=== PATIENT | male | born 1955 | race Caucasian/White ===

== ENCOUNTER 2024-04-21 09:26 | Outpatient (CLI) | payer MEDICARE, SELFPAY ==
--- NOTE | ~2024-04-21 | MR_ITS ---
EXAMINATION: MR lumbar spine wo con DATE: 04/21/2024 10:07 INDICATION: Intervertebral disc displacement with low back and left leg pain TECHNIQUE: Magnetic resonance imaging (MRI) of the lumbar spine was performed without intravenous con trast. Sequences included sagittal T2-weighted FSE, sagittal T2-weighted FS FSE, sagittal T1-weighted FSE, and axial T2-weighted FSE. COMPARISON: None FINDINGS: Approximately 3 mm retrolisthesis L4 on L5 and 4 mm retrolisthesis L5 on S1. Vertebral body heights a re normal. There is fibrovascular degenerative endplate changes posteriorly at L4-L5. Severe disc hei ght loss with degenerative endplate changes at L4-L5 and L5-S1. Mild disc height loss at T10-T11, T11 -T12 and L3-L4 with annular fissure and large disc extrusion at L3-L4 which will be further detailed below. Disc desiccation without disc height loss at L1-L2 and L2-L3. The conus medullaris terminates at L1. There is normal signal in the caudal spinal cord. There are couple 1.2 cm T2 hyperintense left renal cysts. Paravertebral soft tissues are unremarkable. The following disc levels are specifically discussed: T12-L1: The disc does not extend beyond the endplate margin. There is mild right and moderate left fa cet joint osteoarthritis. There is no neural foraminal stenosis. There is no central canal stenosis. L1-L2: Disc is minimally bulging. There is mild left and mild to moderate right facet joint osteoarth ritis. There is mild bilateral, left greater than right neural foraminal stenosis. There is no centra l canal stenosis. L2-L3: Disc is mildly bulging with superimposed annular fissure. There is mild to moderate bilateral facet joint osteoarthritis. There is moderate bilateral neural foraminal stenosis. There is mild cent ral canal stenosis. L3-L4: Disc is bulging with annular fissure and large central disc extrusion which extends cephalad i nto the right paracentral region up to 2.1 cm above level of the inferior endplate of L3. There is mo derate bilateral facet joint osteoarthritis. There is moderate left and mild to moderate right neural foraminal stenosis. There is severe central canal stenosis. L4-L5: Right paracentral predominant posterior disc osteophyte complex. There is right and mild to mo derate left facet joint osteoarthritis. There is moderate left and moderate to severe right neural fo raminal stenosis. There is mild central canal stenosis with posterior decompression via a right hemil aminectomy. There is also mild narrowing of the right lateral recess. L5-S1: Posterior disc osteophyte complex. There is mild to moderate bilateral facet joint osteoarthri tis. There is mild to moderate bilateral neural foraminal stenosis. There is mild central canal steno sis with narrowing of the lateral recesses, mild on the right and moderate on the left IMPRESSION: 1. Severe lower lumbar predominant spondylosis with severe central canal stenosis resulting from a la rge central disc extrusion at L3-L4. Reviewed, dictated and finalized at location B. IMPRESSION: 1. Severe lower lumbar predominant spondylosis with severe central canal stenos is resulting from a large central disc extrusion at L3-L4.
== END 2024-04-21 09:27 ==
LOC: MICIMG 09:33
PROVIDERS: PCP Family Medicine; Visit Provider Neurological Surgery
DX: M51.26 Other intervertebral disc displacement, lumbar region (principal); M47.896 Other spondylosis, lumbar region
CPT/HCPCS: 72148

== ENCOUNTER 2024-05-04 09:31 | Emergency (ER) | payer MEDICARE, SELFPAY ==
[2024-05-04 09:36] VITALS: BP 138/49; PULSE 68; RESP 16; TEMP 36.8; O2SAT 96
[2024-05-04] MEDS: KETOROLAC 30 MG/ML VIAL (*BKC) IM (10:21)
--- NOTE | 2024-05-04 10:48 | ED.BACK ---
HPI - Back Pain/Injury General Chief Complaint: Back Pain/Injury Stated Complaint: bulging disk is killing me Time Seen by Provider: 05/04/24 09:34 History of Present Illness HPI Narrative: Patient is a 68-year-old male who presents ER with low back pain. Ongoing for 4 days. radiates from the right lower back around to the right anterior thigh. Reports has weakness due to pain but no paralysis. No saddle anesthesia or difficulty urinating or defecating. No reports of trauma for past few days. He is seen your surgery and has had an outpatient MRI that shows a bulging disc with central canal stenosis. He has had steroid injections through pain management physician the last 1 4 weeks ago and reports that it gave him no improvement. Related Data Home Medications Medication Instructions Recorded Confirmed famotidine 20 mg tablet 20 mg PO DAILY 10/25/23 10/25/23 glimepiride 1 mg tablet 1 mg PO QAM 10/25/23 10/25/23 hydrocodone 5 mg-acetaminophen 325 1 tablet PO QHS PRN 10/25/23 10/25/23 mg tablet pregabalin 100 mg capsule 100 mg PO BID 10/25/23 10/25/23 metformin 500 mg tablet 500 mg PO DAILY 04/09/24 Allergies Allergy/AdvReac Type Severity Reaction Status Date / Time codeine AdvReac Chest Pain Verified 05/04/24 09:41 [facility] Past Medical History Medical History (Updated 05/04/24 @ 12:25 by Dileep Mcneil MD) Lumbar spondylosis Family History Family History Mother Diabetes mellitus Social History Social History Smoking packs per day: 1 Smoking cigarettes per day: 20.0 Smoking status: Current every day smoker Alcohol intake: never Substance use: never Substance use type: does not use Do You Feel Safe in your Home?: Yes Lack of Transportation: No Lack of Food: Never True Current Housing: I Have Housing Concerned About Future Housing: No Difficulty Paying Gas/Electric Bills: No Difficulty Paying for Meds: No Currently Unemployed: No Education: Associate Degree Difficulty w/ Childcare or Family Care: No Exam Narrative: GENERAL: Well-appearing, well-nourished, and in no acute distress. HEAD: Normocephalic, atraumatic. ENT: Mucous membranes moist. CHEST: Clear to auscultation. No respiratory distress. HEART: Regular rate and rhythm. Normal peripheral pulses. EXTREMITIES: Normal range of motion. No edema. 5/5 strength in the right and left lower extremities at the hip/knee/ ankle. No decreased sensation. SKIN: Warm, dry, no rash. NEURO: Alert and oriented x3. PSYCH: Normal mood and affect. Course Course Emergency Course: Discussed with Neurosurgery on-call. Recommend start Dosepak and follow-up on . I will also give patient a Percocet since [employer] is no longer working for him. Vital Signs Vital signs: Vital Signs Temperature 98.3 F 05/04/24 09:36 Pulse Rate 68 05/04/24 09:36 Respiratory Rate 16 05/04/24 09:36 Blood Pressure 138/49 L 05/04/24 09:36 Pulse Oximetry 96 05/04/24 09:36 Oxygen Delivery Room Air 05/04/24 09:36 Temperature 98.3 F 05/04/24 09:36 Pulse Rate 68 05/04/24 09:36 Respiratory Rate 16 05/04/24 09:36 Blood Pressure 138/49 L 05/04/24 09:36 Pulse Oximetry 96 05/04/24 09:36 Oxygen Delivery Room Air 05/04/24 09:36 Discharge Plan Discharge Clinical Impression: Herniated disc Patient Disposition: Home, Self-Care Condition: Stable Instructions: Acute Low Back Pain (ED) Additional Instructions: Please return to the emergency department if you develop severe pain that is not controlled by pain medications or if you are unable to walk because of pain or weakness. Return to the emergency department immediately if you develop fevers, loss of bowel or bladder control (dribbling of urine or having accidents you wouldn't normally have), inability to urinate, n
== END 2024-05-04 12:58 | disposition home or self-care (01) ==
PROVIDERS: Emergency Provider Emergency Medicine; PCP Family Medicine
DX: M54.50 Low back pain, unspecified (principal); M51.26 Other intervertebral disc displacement, lumbar region; F17.210 Nicotine dependence, cigarettes, uncomplicated
CPT/HCPCS: 96372; 99283; J1885

== ENCOUNTER 2024-05-25 13:41 | Outpatient (CLI) | payer MEDICARE, SELFPAY ==
[2024-05-25 14:46] LABS: Appearance Urine Clear (Clear); Bacteria Urine None Seen /hpf; Bilirubin Urine Negative (Negative); Blood Urine 1+ (Negative); Color Urine Yellow (Yellow); Glucose Urine UA 3+ mg/dL (Negative); Ketones Urine Negative (Negative); Leukocyte Esterase Ur Negative LEU/UL (Negative); Nitrate Urine Negative (Negative); Non Pathogenic Casts 0-2; Protein Urine Negative (Negative); Squamous Epithelial Cell Urine None Seen /hpf (Few); Urobilinogen Urine 0.2 mg/dL (<2.0); WBC Urine 0-5 /hpf (0-3); pH Urine 5.5 (5.0-9.0)
[2024-05-25 14:53] LABS: INR 0.9; Prothrombin Time 12.9 Seconds (11.1-14.7)
[2024-05-25 14:54] LABS: Partial Thromboplastin Time 37.5 Seconds (22.3-36.8)
[2024-05-25 14:57] LABS: Add Urine Microscopic? YES
== END 2024-05-25 13:42 | disposition home or self-care (01) ==
LOC: ANHSURGERY 13:49
PROVIDERS: PCP Family Medicine; Visit Provider Neurological Surgery
DX: M51.16 Intervertebral disc disorders with radiculopathy, lumbar region (principal); Z01.818 Encounter for other preprocedural examination
CPT/HCPCS: 36415; 81001; 85610; 85730

== ENCOUNTER 2024-05-27 00:48 | Day surgery (SDC) | payer MEDICARE, SELFPAY ==
--- NOTE | 2024-05-25 11:54 | PC.NURSE ---
Report to the Outpatient Waiting Room, entrance under the green pavilion located off [facility], at time _10:30 AM on date _05/27/24 . Planned Procedure Time: _12:30 PM . Time changes happen often and if your time is changed the preop area will call you the afternoon before. - You and your visitor will be asked to self-screen and do not enter if you have any COVID symptoms. - A mask is optional within the hospital at this time. Patients may have clear liquids (water, carbonated beverages, clear teas, apple juice) until 3 hours prior to surgery( 9:30AM) with a maximum of 20 ounces. - No food from midnight until time of surgery - Infants may have breast milk until 4 hours before surgery, infant formula 6 hours prior to surgery. - Children will be allowed to drink immediately following surgery. If applicable, please bring a bottle or sippy cup to assist with drinking. Juice, water, soda, and popsicles are readily available. For infants on formula, please bring formula the day of surgery. Pacifiers are allowed. Take the following medications with a SIP of water the morning of surgery: ____PREGABALIN,INHALER IF NEEDED,HYDROCODONE IF NEEDED DO NOT STOP ANY OF YOUR OTHER PRESCRIPTION MEDICATIONS PRIOR TO SURGERY ?EXCEPT THE FOLLOWING Medications to discontinue per physician __PT STATES HOLD ASPIRIN 7 DAYS PRE OP PER DR YU. LAST DOSE ONE MONTH AGO Please no make-up, nail rwandan, hairspray, perfume, deodorant, or body powder the day of surgery. No jewelry (including any body piercings) or valuables the day of surgery, leave them at home. Please take a shower or bath the night before, or the morning of, surgery with an antibacterial soap. Wear comfortable, loose fitting clothing. Children are encouraged to wear pajamas. - Jewelry must be removed prior to entering the operating room. Rings and piercings that are not removed may be cut off. - The hospital will not accept responsibility for valuables. - Please leave all valuables, including medications, at home the day of surgery. If you are going home after surgery, a licensed assembly line driver must drive you home. - NO public transportation without another adult if you receive anesthesia. - We recommend that an adult stay with you for 24 hours following discharge. - We also recommend that you do not drive, make important decision, drink alcoholic beverages, or take any drugs that were not prescribed by your health care provider for at least 24 hours after your discharge time. For Pediatric surgeries, we recommend two adults accompany the child home. Follow any additional instructions given to you from your surgeon. If you or anyone in your household have experienced Covid symptoms in the past week, please notify your surgeon or the nurse liaison at the phone number below for possible testing. Telephone instructions given to __PATIENT and asked if any additional questions and then verbalized understanding. Patient advised to call surgeon office or pre surgery nurse liaison [phone] if any additional questions.
[2024-05-25 12:01] VITALS: BMI 22.4
[2024-05-27] VITALS (9 sets, daily range): BP systolic 120–148; BP diastolic 56–80; PULSE 70–96; RESP 12–20; TEMP 36.2–36.7; O2SAT 92–100
--- NOTE | ~2024-05-27 | XR_ITS ---
EXAMINATION: XR fluoroscopy no charge DATE: 05/27/2024 16:23 INDICATION: Right L3-L4 microdiscectomy TECHNIQUE: Single lateral fluoroscopic image of the lower lumbar spine was obtained during procedure performed by Dr. Lockwood. Radiologist was not present for the imaging or procedure. The amount of flu oroscopy time used during this procedure was 0.1 minutes. COMPARISON: None. FINDINGS: Lap sponge projects over the soft tissues posterior to the L3 spinous process. The tip of a metallic probe projects posterior to the lamina at L3-L4. Moderate to severe disc height loss at L4- L5 and L5-S1.. IMPRESSION: 1. Fluoroscopy utilized during neurosurgical procedure at the lower lumbar spine. See procedure note for further detail. Reviewed, dictated and finalized at location A. IMPRESSION: 1. Fluoroscopy utilized during neurosurgical procedure at the lower lumbar spin e. See procedure note for further detail.
[2024-05-27] MEDS: LACTATED RINGERS 1,000 ML 30 ML IV CONT ×2 (11:06→15:10)
[2024-05-27 11:11] LABS: Glucose Point of Care 159 mg/dl (65-105)
[2024-05-27 11:31] LABS: Partial Thromboplastin Time 40.4 Seconds (22.3-36.8)
--- NOTE | 2024-05-27 12:00 | WPDANESEPPF ---
Anes - Initial Pre Proc Eval Procedure: Operation Date: 05/27/24 12:30 Proposed Procedures p Right L3-4 Microdiscectomy - Rosa Lockwood MD Date/Time: 05/27/24 12:00 Surgeon: Rosa Lockwood MD Pre Op Diagnosis: lumbar disc herniation with radiculopathy Patient Data Age: 68 Gender: M Height: 1.83 m Weight: 73.8 kg Last Vital Signs Temp 36.7 C 05/27/24 10:37 Pulse 72 05/27/24 10:37 Resp 18 05/27/24 10:37 BP 148/56 H 05/27/24 10:37 Pulse Ox 99 05/27/24 10:37 O2 Del Method Room Air 05/27/24 10:37 Allergies Allergy/AdvReac Type Severity Reaction Status Date / Time codeine AdvReac Chest Pain Verified 05/27/24 11:12 Home Medications Medication Instructions Recorded Confirmed Type famotidine 20 mg tablet 20 mg PO BID 10/25/23 05/27/24 History glimepiride 1 mg tablet 1 mg PO QAM 10/25/23 05/27/24 History hydrocodone 5 mg-acetaminophen 325 1 tablet PO QHS PRN Pain 10/25/23 05/27/24 History mg tablet pregabalin 100 mg capsule 100 mg PO BID 10/25/23 05/27/24 History metformin 500 mg tablet 500 mg PO DAILY 04/09/24 05/27/24 History tramadol 50 mg tablet 50 mg PO Q6H PRN pain #28 tabs 05/07/24 05/27/24 Rx albuterol sulfate 90 mcg/actuation 1 puff inhalation PRN PRN 05/25/24 05/27/24 History aerosol inhaler (Ventolin HFA) Shortness Of Breath aspirin 81 mg tablet,delayed 81 mg PO DAILY 05/25/24 05/27/24 History release (Adult Low Dose Aspirin) testosterone 20.25 mg transdermal DAILY 05/25/24 05/27/24 History Laboratory Tests 05/27/24 05/27/24 11:01 11:04 APTT 40.4 H Seconds (22.3-36.8) POC Capillary Glucose 159 H mg/dl (65-105) Patient hx anesthesia problems: none Family hx anesthesia problems: none Results Review: All pre-operative results and documents have been reviewed as part of the pre-operative evaluation. [facility] Past Medical History Medical History (Updated 05/27/24 @ 12:01 by Corky Mclain MD) COPD (chronic obstructive pulmonary disease) Diabetes Lumbar spondylosis PVD (peripheral vascular disease) Family History Family History Mother Diabetes mellitus Social History Social History Smoking packs per day: 1 Smoking cigarettes per day: 20.0 Years smoked: 48 Smoking pack-years: 48.00 Smoking status: Current every day smoker Tobacco type: cigarettes Alcohol intake: never Substance use: never Substance use type: does not use Do You Feel Safe in your Home?: Yes Lack of Transportation: No Lack of Food: Never True Current Housing: I Have Housing Concerned About Future Housing: No Difficulty Paying Gas/Electric Bills: No Difficulty Paying for Meds: No Currently Unemployed: No Education: Associate Degree Difficulty w/ Childcare or Family Care: No Living arrangements: alone Spiritual care concerns: No Anes - Eval Final PreProcedure Day of Procedure 05/27/24 12:00 Patient weight: normal Heart: regular rate and rhythm Lungs: decreased breath sounds Airway: Mallampati scale class II Neurological: alert and oriented Last oral intake: >/= 8 hours ASA classification: IV Emergent: no Anesthetic plan: proceed Anesthesia type and monitoring: general ETT and standard monitoring Results Review: All pre-operative results and documents have been reviewed as part of the pre-operative evaluation. Informed Consent: The patient's anesthetic plan and its attendant risks and benefits were discussed with the patient/family/POA. Questions were solicited and answers provided to the satisfaction of the patient/family/POA.
--- NOTE | 2024-05-27 12:53 | WPDHPUPDATE1 ---
History and Physical Update Update Date/Time: 05/27/24 12:53 History and Physical has been reviewed, including an updated exam of the patient. There are NO changes in the patient's condition. Risks, benefits, and alternatives have been discussed and questions answered. Patient agrees to proceed with procedure.
[2024-05-27] MEDS: ceFAZolin 2 GM/D5W 50 ML 2 GM/50 ML BAG IVPB (13:45)
[2024-05-27] MEDS: BUPIVACAINE/EPINEPHRINE 0.5% 50 ML VIAL 30 ML INFILTRATE (13:53)
--- NOTE | 2024-05-27 14:59 | PM.OP ---
Procedure Note - Brief Procedure Note - Brief Date of procedure: 05/27/24 lumbar disc herniation with radiculopathy Post-op diagnosis: Same Procedure performed: Right L3-4 microdiskectomy Use of microscope Use of C-arm Surgeon: Rosa Lockwood MD Anesthesia: GETA Findings: Three large free pieces of disc identified and removed from spinal canal without complication Estimated blood loss (mL): 50 Drains: No Packing: No Pathology: None sent Complications: None Condition: Stable Disposition: PACU
--- NOTE | 2024-05-27 15:21 | W.PM.PROC2 ---
Procedure Note - Detailed Date of Procedure 05/27/24 Pre-op Diagnosis lumbar disc herniation with radiculopathy Post-op Diagnosis Same Procedure Performed 1. Right L3-4 microdiskectomy 2. Use of C-arm for fluroscopy 3. Use of microscope for microsurgical dissection Surgeon Rosa Lockwood MD Insulation Board Calender Operator Rashel Anesthesia General Indications Mr. Lopez is a 68-year-old male with history of diabetes and peripheral vascular disease who has had significant back and right leg pain as well as more recent development of numbness and requiring a walker to ambulate who has a recent MRI lumbar spine showing a new large central disc herniation at L3-4 which is cranially migrated. This is causing severe central stenosis at L3-4. We discussed treatment options including an epidural steroid injection at L3-4 versus proceeding with surgery in the form of a right L3-4 microdiskectomy. We discussed surgery in detail including risks, expected recovery, and restrictions after surgery. He would like to proceed with surgery as discussed. Description of Procedure The patient was brought to the operating room, and general anesthesia was induced. The patient was placed prone on the Dhiraj frame, and all pressure points were padded. Compression devices were placed on the patient's calves. The skin was cleaned with alcohol. The C-arm was brought onto the field to localize the appropriate disc space and assist with incisional planning. The area was prepped and draped in usual sterile fashion. A time out was conducted, and pre-operative antibiotics were administered. Local anesthesia was injected into the planned incision. A skin incision was made with a 10-blade scalpel, and dissection was carried down with the monopolar cautery to open the fascia. The right lamina at L3 was exposed with the bovie. An upgoing curette was placed under the L3 lamina, and the C-arm was brought in to confirm the correct level. A self-retaining retractor was placed. The currette was used to clear the space under the lamina. A laminotomy was made using the Kerrison rongeurs and high-speed drill. The ligamentum flavum was opened with a currette and removed with Kerrisons. The dura was noted to be bulging due to the disc. The dura was from the disc and retracted. A nerve hook was used to remove the herniated fragment in three large fragments. A Woodsen was used to ensure the dura were well decompressed. Hemostasis was achieved with Surgiflo and cottonoid patties. The area was copiously irrigated. No evidence of CSF leak was noted. The fascia was closed with 0-Vicryl in an interrupted fashion. The soft tissue was again copiously irrigated. The dermis was closed with 2-0 and 3-0 interrupted Vicryl. The skin was closed with subcuticular 4-0 monocryl. This was covered with skin glue. The patient was returned supine on the stretcher, extubated, and transferred to PACU without incident. Codes: 88958, 32070 Estimated Blood Loss 50 Drains No Packing No Pathology None sent Complications None Condition Stable Disposition PACU [facility] Billing Surgery - Charge Forward: Surgery Billing
[2024-05-27 15:45] LABS: Glucose Point of Care 159 mg/dl (65-105)
== END 2024-05-27 16:55 | disposition home or self-care (01) ==
PROVIDERS: PCP Family Medicine; Visit Provider Neurological Surgery
PROC: (CPT 63030; principal; 2024-05-27 12:30)
DX: M51.16 Intervertebral disc disorders with radiculopathy, lumbar region (principal); E11.51 Type 2 diabetes mellitus with diabetic peripheral angiopathy without gangrene; J44.9 Chronic obstructive pulmonary disease, unspecified; F17.210 Nicotine dependence, cigarettes, uncomplicated; Z79.84 Long term (current) use of oral hypoglycemic drugs; Z79.51 Long term (current) use of inhaled steroids; Z79.82 Long term (current) use of aspirin
CPT/HCPCS: 63030; 36415; 82948; 85730; 99199; J0690; J2250; J2405; J2704; J3010; J7120

== ENCOUNTER 2024-12-28 13:55 | Outpatient (CLI) | payer MEDICARE, SELFPAY | END 2024-12-28 13:56 | disposition home or self-care (01) | LOC: MICIMG 13:56 | PROVIDERS: PCP Family Medicine; Visit Provider Neurological Surgery | DX: R29.818 Other symptoms and signs involving the nervous system (principal); G95.89 Other specified diseases of spinal cord; M43.02 Spondylolysis, cervical region; M51.379 Other intervertebral disc degeneration, lumbosacral region without mention of lumbar back pain or lower extremity pain; M43.06 Spondylolysis, lumbar region; M25.512 Pain in left shoulder; M25.511 Pain in right shoulder; M25.551 Pain in right hip; Z98.1 Arthrodesis status; Z98.890 Other specified postprocedural states | CPT/HCPCS: 72110; 72141; 72158; 73030; 73502; A9579 ==

== ENCOUNTER 2025-01-26 08:33 | Outpatient (CLI) | payer MEDICARE, SELFPAY ==
--- NOTE | 2025-01-25 15:53 | PC.NURSE ---
Pre Radiology instructions Report to the outpatient marbin landaverde on date _01/26/25____ at time __9 AM for procedure Time: 11 AM____ YOU MAY BE MONITORED AT HOSPITAL FOR UP TO 4 HOURS AFTER YOUR PROCEDURE. A visitor will be allowed to accompany the patient into the hospital. You and your visitor will be asked to self-screen and do not enter if you have any COVID symptoms. A mask is OPTIONAL within the hospital. Patients are to have no food or drink 6 hours prior to procedure time Driving will be restricted after the procedure, you must have a person to drive you home. Labs will be drawn in preop area and once reviewed, you will be taken to radiology area for procedure. When the procedure is completed, you will be taken to outpatient where you will be monitored for several hours. You may have one visitor in this area. Other than holding anti-coagulants, patient may take other medication(s) as scheduled. Prior to your appointment date patients are instructed to hold anti-coagulants after discussing with ordering provider to stop. If unable to discontinue anti-coagulants please notify radiologist. ? No aspirin or warfarin (Coumadin) for 7 days prior to the procedure. ? No clopidogrel (Plavix), ticagrelor (Brilinta), prasugrel (Effient) or dabigatran (Pradaxa) for 5 days prior to the procedure. ? No rivaroxaban (Xarelto), apixaban (Eliquis), dipyridamole (Aggrenox or Persantine) or cilostazol (Pletal) for 2 days prior to the procedure. Medications to discontinue per physician: ____NONE____ Date to take last dose: Please leave all valuables, including medications, at home the day of procedure. The hospital will not accept responsibility for valuables. Wear comfortable, loose fitting clothing.? Follow any additional instructions given to you from ordering provider. Telephone instructions given to ___PATIENT and asked if any additional questions and then verbalized understanding. Patient advised to call scheduling provider office or registration scheduling [phone] if any additional questions.
[2025-01-25 16:00] VITALS: BMI 23.7
[2025-01-26] VITALS (8 sets, daily range): BP systolic 118–163; BP diastolic 46–72; PULSE 52–63; RESP 16–18; TEMP 36.2; O2SAT 97–99
--- NOTE | ~2025-01-26 | XR_ITS ---
EXAMINATION: CT cervical spine w con, CT thoracic lumbar w con, [id number] DATE: 01/26/2025 11:27 INDICATION: TECHNIQUE: Informed consent was obtained from the patient. Risks and benefits including bleeding, i nfection and nerve root injury were discussed with the patient. The patient agreed to proceed. Time out procedure was performed. Director Physical Therapy radiograph was obtained. An entry site was chosen at the L2/3 l evel. A left paracentral approach was used. Standard sterile prep was done with Betadine. Entry si te was infiltrated with 5 cc 1% lidocaine. A 3.5 22G spinal needle was then inserted into the spina l canal. 10 mL Omnipaque 300 were then injected into the thecal sac. Patient was placed in prone Danny ndelenburg position and movement of the contrast bolus into the cervical spine was monitored with int ermittent fluoroscopy. AP and lateral views of the cervical, thoracic and lumbar spine and left and r ight oblique fluoroscopic images of the lumbar spine were obtained. A total of 23 fluoroscopic images were recorded. Fluoroscopy time was 1.4 minutes. Total DAP was 9.478 Gycm^2. The patient was then transferred to CT scan for spiral CT of the cervical, thoracic and lumbar spine which was performed with the intrathecal contrast but without intravenous contrast. Following this p atient was transferred to recovery area for 2 hours of observation. There are no immediate complicat ions. Coronal and sagittal reformatted images of the lumbar spine CT were also reviewed. Automated ex posure control and iterative reconstruction technique were employed. The dose-length product was 1609 .42 mGy-cm. COMPARISON: Cervical and lumbar spine MRI dated 12/28/2024 FINDINGS: Cervical spine: Instrumented C3-C4 and C6-C7 anterior spinal fusion with interbody bone graft cages and anterior plat e-screw fixation. Bone alignment is normal. Unfused cervical vertebral body heights are normal. No fr acture. Mild disc height loss at C2-C3 and C4-C5 and moderate disc height loss at C5-C6. Atherosclero tic calcifications at the bilateral carotid bulbs. Cervical soft tissues are otherwise unremarkable. The following disc levels are specifically discussed: C2-C3: There is mild to moderate bilateral uncovertebral joint osteoarthritis. There is moderate righ t and severe left facet joint osteoarthritis. There is mild left and minimal right neural foraminal s tenosis. There is minimal central canal stenosis. C3-C4: Hypertrophic change along the posterior margin of the fused disc space most prominent in the l eft paracentral region where it indents the left ventral surface of the cord. There is severe bilater al uncovertebral joint osteoarthritis. There is moderate bilateral facet joint osteoarthritis. There is moderate bilateral neural foraminal stenosis. There is mild to moderate central canal stenosis bertha suring 5 to 6 mm AP in the mid sagittal plane. C4-C5: Disc is mildly bulging with some peripheral calcification. There is mild bilateral uncovertebr al joint osteoarthritis. There is mild right and severe left facet joint osteoarthritis. There is mil d right and mild to moderate left neural foraminal stenosis. There is mild central canal stenosis. C5-C6: Partially calcified disc with right paracentral disc protrusion which indents the right ventra l surface of the cord. There is severe bilateral uncovertebral joint osteoarthritis. There is mild to moderate bilateral facet joint osteoarthritis. There is moderate left and moderate to severe right n eural foraminal stenosis. There is mild central canal stenosis. C6-C7: Disc space and bilateral uncovertebral joints are fused. There is mild to moderate bilateral f acet joint osteoarthritis. There is mild left and minimal right neural foraminal stenosis. There is n o central canal stenosis. C7-T1: The disc does not extend beyond the endplate margin. There is minimal bilateral uncovertebral joint osteoarthritis. There is moderate left and severe right facet joint osteoarthritis. There is mi nimal bilateral neural foraminal stenosis. There is no central canal stenosis. Thoracic spine: 10 degrees mid thoracic dextroscoliosis. Sagittal alignment is normal. Chronic appearing mild anterio r wedging at T1, T6 and T7. No acute fracture. There is moderate disc height loss at T5-T6 and T10-T1 1 with multilevel mild disc height loss the remaining levels from T1-T2 through T11-T12. Disc is mini haroon bulging at T11-T12 with no significant central canal stenosis. Remaining thoracic discs do not extend beyond the endplate margins with no central canal stenosis. There is moderate facet osteoarthr itis contributed to mild neural from stenosis bilaterally at T3-T4 and on the right at T4-T5. Otherwi se minimal to mild facet osteoarthritis throughout the thoracic spine. Additional mild bilateral neur al from stenosis at T11-T12. No other significant neural foraminal stenosis. Mild emphysema. Calcifie d right hilar lymph nodes consistent with old granulomatous disease. Small sliding-type hiatal hernia . Lumbar spine: 12 degrees lumbar levoscoliosis. Sagittal alignment is normal. Lumbar vertebral body heights are norm al. Severe disc height loss at L4-L5 and L5-S1. Mild disc height loss at L3-L4. The conus medullaris terminates at L1. There is atherosclerotic calcification and stenting at the aortic bifurcation with stents extending to the proximal most left common iliac artery and the bifurcation of the right commo n iliac artery. The following disc levels are specifically discussed: L1-L2: The disc does not extend beyond the endplate margin. There is mild to moderate bilateral facet joint osteoarthritis. There is mild bilateral neural foraminal stenosis. There is no central canal s tenosis. L2-L3: Disc is mildly bulging. There is mild bilateral facet joint osteoarthritis. There is mild left and mild to moderate right neural foraminal stenosis. There is moderate central canal stenosis. L3-L4: Disc is bulging. There is mild bilateral facet joint osteoarthritis. There is mild to moderate right and moderate left neural foraminal stenosis. There is moderate central canal stenosis. L4-L5: Posterior disc osteophyte complex. There is mild left and moderate right facet joint osteoarth ritis. There is moderate left and moderate to severe right neural foraminal stenosis. There is mild c entral canal stenosis with prior posterior decompression including a right hemilaminotomy. L5-S1: Posterior disc osteophyte complex. There is mild to moderate bilateral facet joint osteoarthri tis. There is mild to moderate bilateral neural foraminal stenosis. There is mild central canal steno sis. IMPRESSION: 1. S-shaped lumbar scoliosis with mild thoracic dextrocurvature and lumbar levocurvature. 2. Moderate cervical, mild to moderate thoracic and severe lumbar spondylosis. Reviewed, dictated and finalized at location A. IMPRESSION: 1. S-shaped lumbar scoliosis with mild thoracic dextrocurvature and lumbar levo curvature. 2. Moderate cervical, mild to moderate thoracic and severe lumbar spondylosis. IMPRESSION: 1. S-shaped lumbar scoliosis with mild thoracic dextrocurvature and lumbar levo curvature. 2. Moderate cervical, mild to moderate thoracic and severe lumbar spondylosis.
--- OUTSIDE RECORDS SUMMARY | 2025-01-26 08:45 | XMS_ITS | Encounter Summary ---
Author Organization [facility] Address [address] [place] [address] Care Team Providers Care Rail Walker Name Role Phone Anuradha Ramos MD Primary Care Provider Anuradha Ramos MD Unavailable [phone] Alfred Lowery MD Unavailable [phone] Moises Munroe APRN Unavailable [phone] Cosmo Castillo MD Unavailable [phone] Encounter Details Date Type Department Care Team (Late st Contact Info) Description 03/02/2022 Prep for Procedure [facility], [facility] [address], [place] [id number] Mata Moy MD [facility]. [facility] [address] [place] [address] Social History Tobacco Use Types Packs/Day Years Used Date Smoking Tobacco: Every Day Cigarettes 1 40 Smokeless Tobacco: Never Comments:doc will address Alcohol Use Standard Drinks/Week Comments Not Currently 0 (1 standard drink = 0.6 oz pur e alcohol) socially PHQ-2 Answer Date Recorded PHQ-2 Score - If the patient scores above 3, please move on to questions 3-9 0 01/04/2021 Sex and Gender Information Value Date Recorded Sex Assigned at Male 11/12/2024 9:53 AM [employer]ER Legal Sex Male 9:48 PM CDT Gender Identity Not on file Sexual Orientation Not on file 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 Unable to assess 02/28/2022 11:41 AM CDT documented as of this encounter Plan of Treatment Not on file documented as of this encounter Visit Diagnoses Not on filedocumented in this encounter Care Teams Rail Walker Relationship Specialty Start Date End Date Anuradha Ramos MD [address] [place] [id number] PCP - General FAMILY PRACTICE 12/11/21 Anuradha Ramos MD [address] [place] [id number] FAMILY PRACTICE 12/11/21 Alfred Lowery MD [address] [place] [id number] CARDIOVASCULAR DISEASE 02/26/17 Moises Munroe APRN [address] [place] [id number] Nurse Practitioner NURSE PRACTITIONER 05/02/20 Cosmo Castillo MD [address] [facility] [address] [place] [address] [employer] INTERVENTIONAL CARDIOLOGY 05/24/21 documented as of this encounter
--- OUTSIDE RECORDS SUMMARY | 2025-01-26 08:45 | XMS_ITS | Encounter Summary ---
Author Organization [facility] Address [address] [place] [address] Phone Care Team Providers Care Coin Machine Operator Name Role Phone Anuradha Ramos MD Primary Care Provider Darrick Martinez MD Unavailable [phone] Reason for Referral * Consult, Test & Initiate Treatment (Routine) - Closed Specialty Diagnoses / Procedures Referred By Contclarence t Referred To Contact General Surgery Diagnoses Anterior cervical adenopathy Normochromic anemia Left-shifted white blood cells Smoking greater than 40 pack years Shalom Escobar MD [address] [place] [address] [place] [address] Phone: tel: fax: Edouard Rosas, [address] [place] [address] Phone: tel: fax: Referral ID Status Reason Start Date Expiration Date Visits Re quested Visits Authorized [id number] Closed 09/06/2021 1 1 Scheduling Instructions Vinayak needs to have an upper and lower endoscopy to r/o GI bleeding. Dx: Low iron (Vinayak will call himself to make the appt). ARCHITECT Reason for Visit * Reason Onset Date Comments lab results 09/05/2021 lab results Encounter Details Date Type Department Care Team ([facility] st Contact Info) Description 09/05/[address] [address] Shalom Escobar MD [address] [place] [address] [place] [address] lab results (lab results) Social History Tobacco Use Types Packs/Day Years Used Date Smoking Tobacco: Every Day Cigarettes Smokeless Tobacco: Never Alcohol Use Standard Drinks/Week Comments Yes 0 (1 standard drink = 0.6 oz pur e alcohol) Socially PHQ-2 Answer Date Recorded Total Score - Questions 1-9 0 01/2021 Sex and Gender Information Value Date Recorded Sex Assigned at Not on file Legal Sex Male 1:13 PM CDT Gender Identity Not on file Sexual Orientation Not on file COVID-19 Exposure Response Date Recorded In the last month, have you been in contact with someone who was confirmed or suspected to have Coronavirus / COVID-19? No / Unsure 08/31/2021 2:55 PM CDT documented as of this encounter Miscellaneous Notes * Telephone Encounter - Shanika Nuñez - 09/06/2021 9:43 AM CST Pt scheduled & notified. Will make referral to Dr. Rosas ARCHITECT * Telephone Encounter - Adia Priest LPN - 09/06/2021 9:06 AM CST I called Vinayak with Dr Escobar's recommendations. He will start a slo release iron tablet daily as recommended. He admits he had scopes with Dr Rosas a few years ago. He is wanting to vacation over thenext few months and wishes to make his own appt with Dr Rosas. I entered the referral order. Scheduling: Can we please send records to Dr Rosas and just let his office know the pt will be making his own appt? I entered the lab orders for 2-3 months from now and faxed them to [facility]. Scheduling: Please make Vinayak marina f/u appt per Dr Escobar's recommendations. ARCHITECT * Telephone Encounter - Shalom Escobar MD - 09/05/2021 9:43 PM CST Ideally -- he needs to have an Upper and lower GI endoscopy done to r/o GI bleeding as the cause ofthe low Iron since the majority of pts with low Iron will end up having some bleeding of the GI tract. He should also try Slow release Iron once a day -- then have him repeat his CBC, Ferritin, TIBC,Iron, Iron sat in [place] in 2 to 3 months then see me in [place] for f/u a few days after the labs are completed. ARCHITECT * Telephone Encounter - Adia Priest LPN - 09/05/2021 12:53 PM CST Shalom called back. We discussed Dr Escobar's recommendations. He voiced understanding. Vinayak asks about his iron level and if anything needs done for this? ARCHITECT * Telephone Encounter - Adia Priest LPN - 09/05/2021 12:35 PM CST I left a message for Vinayak to call back. ARCHITECT * Telephone Encounter - Adia Priest LPN - 09/05/2021 9:10 AM CST ----- Message from Shalom Escobar MD sent at 09/04/2021 10:13 PM IP ARCHITECT ----- Call pt-- his labs dd not show any abnormal White blood cells. Otherwise, the rest of labs are quite unremarkable. 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 Great news. ARCHITECT documented in this encounter Plan of Treatment Scheduled Orders Name Type Priority Associated Diagnoses Orde r Schedule COMPLETE BLOOD COUNT (CBC) WITH DIFF Lab Routine Anterior cervical adenopathy Normochromic anemia Left-shifted white blood cells Smoking greater than 40 pack years Expected: 11/03/2021, Expires: 02/02/2022 [facility]ERR[facility] Lab Routine Anterior cervical adenopathy Normochromic anemia Left-shifted white blood cells Smoking greater than 40 pack years Expected: 11/03/2021, Expires: 02/02/2022 IRON W/ IRON BINDING CAPACITY [place] Lab Routine Anterior cervical adenopathy Normochromic anemia Left-shifted white blood cells Smoking greater than 40 pack years Expected: 11/03/2021, Expires: 02/02/2022 Scheduled Referrals Name Type Priority Associated Diagnoses Orde r Schedule EXTERNAL OTHER REFERRAL HST Outpatient Referral Routine Anterior cervical adenopathy Normochromic anemia Left-shifted white blood cells Smoking greater than 40 pack years Expected: 09/06/2021, Expires: 10/06/2022 documented as of this encounter Visit Diagnoses Diagnosis Anterior cervical adenopathy- Primary Enlargement of lymph nodes Normochromic anemia Anemia, unspecified Left-shifted white blood cells Smoking greater than 40 pack years Tobacco use disorder documented in this encounter Additional Health Concerns Assessment Noted Time PHQ-9 Depression Total Score: 0 08/31/20 3:36 PM CDT documented as of this encounter Care Teams Coin Machine Operator Relationship Specialty Start Date End Date Anuradha Ramos MD [address] [place] [address] PCP - General Family Medicine 08/08/21 Darrick Martinez MD [facility] [address] [place] [address] Consulting Physician Oncology 08/08/21 documented as of this encounter
--- OUTSIDE RECORDS SUMMARY | 2025-01-26 08:45 | XMS_ITS ---
Author Organization [facility] Address [address] [place] [id number] Care Team Providers Care Marketing Senior Recruiter Name Role Phone Anuradha Ramos Primary Care Provider [phone] REASON FOR VISIT CONTROLLED Medications Medication SIG (Take, Route, Fr equency, Duration) Notes Start Date End Date Status Pregabalin 150 MG 2 capsules Oral two times a day; Duration: 90 days 01/12/2025 07/11/2025 Active Encounters Encounter Location Date Provider Diagnosis [address] [address] 01/12/2025 Anuradha Ramos Spinal stenosis, cervical region M48.02 Assessments Encounter Date Diagnosis (ICD Code) Assessment Notes Treatment Notes Treatment Clinical Notes 01/12/2025 Spinal stenosis, cervical region (ICD-10 - M48.02) Plan Of Treatment Medication Medication Name Sig Start Date Stop Date Notes Pregabalin 150 MG 2 capsules Oral two times a day; Duration: 90 days 01/12/2025 07/11/2025 Next Appt Details Provider Name:Anuradha Ramos , 01/29/2025 11:30:00 AM, [address] [place] [address] [place], [address], [phone] Provider Name:Anuradha Ramos , 05/10/2025 10:00:00 AM, [address] [place] [address] [place], [address], [phone] Provider Name:Lonny carlos, 06/18/2025 08:45:00 AM, [address] [place] [address] [place], [address], [phone] Provider Name:Anuradha Ramos , 08/16/2025 10:00:00 AM, [address] [facility], [place], [address], [phone] Progress Notes * Vinayak ZAYAS ADOB: [birth year] (69 yo M)Acc No.[id number]:01/12/2025 Patient: Vinayak IZQUIERDO :1955 A ge:69 Y S ex:Male Phone: Address:[address] [place] [address], [place], [address] * Refills Refill Pregabalin Capsule, 150 MG, Oral, 360 Capsule, 2 capsules, two times a day, 90 days, Refills=1 Subjective: * Chief Complaints: * C ONTROLLED * Medical History: * Surgical History: * Hospitalization/Major Diagno stic Procedure: * Medications: Objective: * Physical Examination: Assessment: * Assessment: 1. S adenike stenosis, cervical region - M48.02 (Primary) S pecify :Src Problem: Cervical spinal stenosis Plan: * Treatment: * Procedure Codes: Billing Information: * Visit Code: * Procedure Codes: * true * Date: Generated for Calvin degroot/Ian/eTransmitting on: 0 01/26/2025 08:45 AM CDT
--- OUTSIDE RECORDS SUMMARY | 2025-01-26 08:45 | XMS_ITS ---
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 Name Role Phone Anuradha Ramos Primary Care Provider [phone] Allergies Allergen (clinical drug ingredient) Drug/Non Drug Allergy documented on EMR Reaction Allergy Type Onset Date Status Codeine Phosphate Unknown Drug Allergy Active sitagliptin Januvia rash Drug Allergy 05/05/2021 Acti ve Simvastatin chest pain Drug Allergy 05/05/2021 Act tracy empagliflozin Jardiance diarrhea Drug Allergy 08/23/2021 Ac tive Vaccine product containing Influenza virus antigen (medicinal product) Influenza Vaccines Unknown Drug Allergy 05/05/2021 Active pravastatin Pravastatin constipation insomnia Drug Allergy 05/05/2021 Active REASON FOR VISIT 3 month med check and second shingles Medications Medication SIG (Take, Route, Frequency, Duration) Notes Start Date End Date Status Famotidine 20 MG 1 Oral two times a day; Duration: 08/31/2024 11/28/2024 Active Glimepiride 1 MG 1 tablet Orally twice a day; Duration: 90 days Active Tadalafil 20 mg 1/2 to 1 Oral every day; Duration: 0 *Pick strength-form from [facility] for eRX* 06/16/2021 Not-Taking Dexcom G6 Sensor MISCELLANEOUS; Duration: 0 11/09/2022 Not-Taking Pregabalin 150 MG 2 Oral two times a day; Duration: 09/21/2024 12/19/2024 Active Tylenol 8 Hour 650 MG Oral; Duration: 0 11/27/2021 Active metFORMIN HCl ER 500 MG 2 Oral two times a day; Duration: 07/27/2024 01/22/2025 Active ProAir RespiClick 108 (90 Base) MCG/ACT 1-2 Inhalation every four hours; Duration: 0 11/27/2021 Active True Metrix Glucose Test Strip miscellaneous; Duration: 0 *Reorder from [facility] for eRx and Interaction Alerts* 09/14/2021 Active Ipratropium-Albuter ol 0.5-2.5 (3) MG/3ML 1 Inhalation Q6H; Duration: 0 06/19/2021 Active True Metrix Blood Glucose Test - In Vitro; Duration: 90 09/23/2024 12/21/2024 Active Januvia 50 MG 1 tab Orally daily; Duration: 30 days Noted as allergy but pt states he does not think that is the case. Dr. Rachel underwood with trying it. 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) Active confirmed Vital Signs Temperature 97.8 degrees Fahrenheit 11/19/19 25 Blood pressure systolic 146 mm Hg 11/19/19 25 Blood pressure diastolic 68 mm Hg 025 Heart Rate 80 /min 11/19/2024 Respiratory Rate 18 /min 11/19/2024 Height 72.00 in 11/19/2024 Weight 177 lbs 11/19/2024 BMI 24 kg/m2 11/19/2024 Oximetry 96 % 11/19/2024 Height-cm 182.88 cm 11/19/2024 Weight-kg 80.29 kg 11/19/2024 Encounters Encounter Location Date Provider Diagnosis [address] [address] 11/19/2024 Anuradha Ramos Type 2 diabetes mellitus with diabetic neuropathy, unspecified E11.40 ; Peripheral vascular disease, unspecified I73.9 ; Spinal stenosis, cervical region M48.02 ; Prostate cancer screening Z12.5 ; Chronic anemia D64.9 ; Vitamin B12 deficiency E53.8 ; Encounter for immunization Z23 ; Dermatitis L30.9 ; Testicular hypofunction E29.1 ; Occlusion and stenosis of bilateral carotid arteries I65.23 ; 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 11/19/2024 Spinal stenosis, cervical region (ICD-10 - M48.02) f/u with surgeon - sending previous MRI to Dr. Lockwood to let he know his Hx there. Balance issues and muscle atrophy and all findings are multifactorial. 11/19/2024 Prostate cancer screening (ICD-10 - Z12.5) PSA was normal. 11/19/2024 Chronic anemia (ICD-10 - D64.9) overall unchanged. No longer seeing hematology. Monitor iron and Hb through bloodwork. Stable. 11/19/2024 Vitamin B12 deficiency (ICD-10 - E53.8) Rec B12 shots - he is behind on coming in for these. 1 injetion given today. 11/19/2024 Encounter for immunization (ICD-10 - Z23) 2nd shingles given today. 11/19/2024 Dermatitis (ICD-10 - L30.9) Rx triaminconolone refill for dry patches on his back. 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 - Administer the second Shingrix vaccine today. Diabetes Management - Current A1c is 7.9. Issues with Tradjenta due to cost and side effects (low blood sugar). Previous rash with Januvia. Considering Onglyza as an alternative. - Contact pharmacy to explore alternatives for Tradjenta, including Onglyza. Continue metformin twice daily. Check with pharmacy for copay details. End result = januvia low dose suggested - pt doesn't feel listed allergy is true since had diarrhea and many things going on - willing to try again. Anemia and Iron Deficiency - Hemoglobin is 10.7, indicating low normal levels. History of iron deficiency and testosterone deficiency. -Continue B12 shots, check iron studies routinely. Neck and Back Issues - Chronic myelomalacia and degenerative changes in the cervical spine with previous surgery. Muscle wasting and balance issues likely related to neck condition. - Provide a copy of the 2019 MRI to the neurosurgeon. Consider new MRI if recommended by the specialist. Continue physical therapy. Cholesterol Management - Previous issues with statins. Considering non-statin injectable options. - Check cholesterol levels. Discuss non-statin injectable options if cholesterol management is needed. Ex is repatha - pt will consider. Lipids aren't too bad but vascular disease and DM2 status warrant treatment - he states he may consider after his back issues get figured out. Prostate Cancer Screening PSA was normal currently. Follow-up - Regular follow-up needed due to multiple health issues. - Schedule next follow-up appointment in January. Appointments - Follow-up appointment on February 07, 2025, with the physical therapist. - MRI results to be sent to Dr. Rosa Lockwood, neurosurgeon, for review. Plan Of Treatment Medication Medication Name Sig Start Date Stop Date Notes Januvia 50 MG 1 tab Orally daily; Duration: 30 days 11/19/2024 Noted as allergy but pt states he does not think that is the case. Dr. Ramos okay with trying it. Tradjenta 5 MG 1 Oral every day 09/03/2024 12/01/2024 Triamcinolone Acetonide 0.1 % 1 application Externally twice a day; Duration: 14 days 11/19/2024 Treatment Notes Assessment Notes Type 2 diabetes mellitus wit h diabetic neuropathy, unspecified 31 mins face to face with additional 10 mins addressing pharmacy issues with medicine, charting, entering medications, etc on day of service Peripheral vascular disease, unspecified Need to see what he is due for since he is unwilling to see previous CV specialist as he reports they had an argument about a statin. Spinal stenosis, cervical region f/u wit h surgeon - sending previous MRI to Dr. Lockwood to let he know his Hx there. Balance issues and muscle atrophy and all findings are multifactorial. Prostate cancer screening PSA was normal . Chronic anemia overall unchanged. N o longer seeing hematology. Monitor iron and Hb through bloodwork. Stable. Vitamin B12 deficiency Rec B12 shots - he is behind on coming in for these. 1 injetion given today. Encounter for immunization 2nd shingles given today. Dermatitis Rx triaminconolone r efill for dry patches on his back. Other Shingles Vaccination - Due for the second Shingrix vaccine, within the recommended 2-6 month window after the first dose received on June 17, 2024. - Administer the second Shingrix vaccine today. Diabetes Management - Current A1c is 7.9. Issues with Tradjenta due to cost and side effects (low blood sugar). Previous rash with Januvia. Considering Onglyza as an alternative. - Contact pharmacy to explore alternatives for Tradjenta, including Onglyza. Continue metformin twice daily. Check with pharmacy for copay details. End result = januvia low dose suggested - pt doesn't feel listed allergy is true since had diarrhea and many things going on - willing to try again. Anemia and Iron Deficiency - Hemoglobin is 10.7, indicating low normal levels. History of iron deficiency and testosterone deficiency. -Continue B12 shots, check iron studies routinely. Neck and Back Issues - Chronic myelomalacia and degenerative changes in the cervical spine with previous surgery. Muscle wasting and balance issues likely related to neck condition. - Provide a copy of the 2019 MRI to the neurosurgeon. Consider new MRI if recommended by the specialist. Continue physical therapy. Cholesterol Management - Previous issues with statins. Considering non-statin injectable options. - Check cholesterol levels. Discuss non-statin injectable options if cholesterol management is needed. Ex is repatha - pt will consider. Lipids aren't too bad but vascular disease and DM2 status warrant treatment - he states he may consider after his back issues get figured out. Prostate Cancer Screening PSA was normal currently. Follow-up - Regular follow-up needed due to multiple health issues. - Schedule next follow-up appointment in January. Appointments - Follow-up appointment on February 07, 2025, with the physical therapist. - MRI results to be sent to Dr. Rosa Lockwood, neurosurgeon, for review. Next Appt Details Follow Up: 3 Months, Reason: diabetes Provider Name:Anuradha Ramos , 01/29/2025 11:30:00 AM, [address], [place], [address], [phone] Provider Name:Anuradha Ramos , 05/10/2025 10:00:00 AM, [address], [place], [address], [phone] Provider Name:Lonny Estevan Wyatttodd carlos, 06/18/2025 08:45:00 AM, [address], [place], [address], [phone] Provider Name:Anuradha Ramos , 08/16/2025 10:00:00 AM, [address], [place], [address], [phone] Medications Administered Medication Instructions Date of Administration Dosage Notes B12 11/19/2024 1000 ug History and Physical Notes * HPI (History of Present Illness) Category Sub-Category Detail Notes Hyperlipidemia Patient presents for follow-up of hyperlipidemia that was diagnosed years ago The patient's last follow-up was with jordan westbrook's primary care physician Other patient diseases impacting lipid g oals , diabetes Weakness The weakness is generalized a nd chronic Symptoms include motor impairment due to fatigue The weakness started years ago Weakness is associated with underlying d iabetes mellitus Overall condition is unchanged. Doing some PT for his back since neurosurgeon prescribed. Going back on Dec 10 for followup regarding possible imaging. PT not helping. Diabetes mellitus The patient presents for follow-up of diabetes mellitus which was diagnosed years ago, and considered type II diabetes The patient's last follow-up was 024, with the patient's primary care physician The patient denies visual disturbance, unusual thirst Laboratory testing has included a hemogl obin A1c 7.9 Examination Category Sub-Category Detail Notes General Examination General appearance: alert, p leasant, well-nourished and in no acute distress Head: normocephalic, atrau matic Eyes: both eyes, extraocul ar movement intact (EOMI), pupils equal, round, reactive to light and accommodation, conjunctiva clear Ears: both ears, normal, a uditory canal clear, tympanic membranes normal Nose: nares patent, no les ions Throat: clear, no erythema, no exudate, pharynx normal Neck / thyroid: neck is supple with no cervical lymphadenopathy, trachea midline Heart: regular rate and rhy thm without murmurs, gallops, clicks or rubs, S1 and S2 are normal and no S3 and S4 gallop Lungs: clear to auscultatio n bilaterally, with good air movement and no rales, rhonchi or wheezes Abdomen: soft with good bowel sounds, nontender, and no masses or hepatosplenomegaly Neurologic: alert and oriented. Gait wobbly, slow, and staggering. Skin: skin is warm and dry , with no rashes, good skin turgor and normal hair distribution Extremities: normal extremity wit h no clubbing, cyanosis or edema Peripheral pulses: 2+ dorsalis pedis, 2 + posterior tibial, 2+ radial, 2+ carotid Back: normal, without kyph oscoliosis or tenderness Musculoskeletal: Normal bulk and tone in extremities Lymph nodes: no cervical lymphade nopathy Psych: alert and oriented x 3, cognitive function intact, maintains good eye contact, normal affect / mood, speech is clear and coherent Oral cavity: normal, mucosa moist , tongue is midline, Lips benign Foot exam: Date: 11/19/2024 Sensory testing performed:: sensations d iminished Sensory and motor testing performed:: se nsations and strength diminished Pedal pulse taking performed:: 2+ Visual exam of foot performed:: Yes Progress Notes * Vinayak ZAYAS ADOB: [birth year] (69 yo M)Acc No.[id number]:11/19/2024 Patient: Vinayak Knox Provider: Kika Ramos MD :1955 A ge:69 Y S ex:Male Date:11/19/2024 Phone: Address:[address] [place], [place] [id number] Subjective: * Chief Complaints: * 3 month med check and second shingles * HPI: D iabetes mellitus: The patient presents for follow-up of diabetes mellitus w hich was diagnosed years ago, and considered type II diabetes. T he patient's last follow-up was 08/17/2024, with the patient's primary care physician. T he patient denies v isual disturbance, unusual thirst. L aboratory testing has included a hemoglobin A1c 7.9. H yperlipidemia: Patient presents for follow-up of hyperlipidemia t hat was diagnosed years ago. T he patient's last follow-up was with patient's primary care physician. O ther patient diseases impacting lipid goals , diabetes. W eakness: The weakness i s generalized and chronic. T he weakness started y ears ago. S ymptoms include m otor impairment due to fatigue. W eakness is associated with underlying d iabetes mellitus. O verall condition i s unchanged. Doing some PT for his back since neurosurgeon prescribed. Going back on Dec 10 for followup regarding possible imaging. PT not helping.. H PI: Chief complaint Second shingles vaccination and medication review. History of present illness - Benny has been experiencing issues with his back and legs, particularly after surgery. - Reports pain in the lower back and legs when lifting objects, such as wood for the stove. - Undergoing physical therapy for back issues, with a follow-up appointment on December 10, 2024. - Noticed worsening of leg condition after initial improvement post-surgery. - Has a history of neck surgery due to spinal cord compression, with chronic changes noted in the cervical spine. - Muscle wasting and balance issues potentially related to neck condition. - No recent falls reported. - Previously had an MRI of the cervical spine in March 2020, showing degenerative changes and postoperative changes. - Reports tingling down the leg, which led to the initial MRI and subsequent surgery. Immunizations - Tdap, up-to-date - RSV, up-to-date - Pneumonia vaccines, both doses received - Zoster vaccine, first dose received on June 17, 2024; second dose to be administered today Lab results - see full report from [facility] lab. PSA normal - A1c: 7.9 - Hemoglobin: 10.7 - B12: 360 Imaging results - MRI C-spine (April 21, 2020): Degenerative changes with bone spurs, disc protrusion, severe compromise on the right side, postoperative changes at C3-C4 and C6-C7, moderate stenosis, chronic myelomalacia at C3-C4. * Surgical History: Breast biopsy ,notes : right, 12/13/22 Angioplasty ,notes : Dr. Moy 2021 right femoral AIF back surgery ,notes : 05/27/24 Right L3-4 microdiskectomy Echocardiogram ,notes : EF 65% 01/2018 Stent Placement ,notes : x2 in right common illiac artery 02/2017 EMG ,notes : Dr. 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 05/29/2022 * Medications: T akingTrue Metrix Blood Glucose Test - Strip In Vitro , stop date 12/21/2024Tradjenta 5 MG Tablet 1 Oral every day , stop date 12/01/2024Tylenol 8 Hour 650 MG Tablet Extended Release Oral metFORMIN HCl ER 500 MG Tablet Extended Release 24 Hour 2 Oral two times a day , stop date 01/22/2025ProAir RespiClick 108 (90 Base) MCG/ACT Aerosol Powder Breath Activated 1-2 Inhalation every four hours True Metrix Glucose Test Strip miscellaneous , Notes to Pharmacist: *Reorder from [facility] for eRx and Interaction Alerts*Ipratropium-Albuterol 0.5-2.5 (3) MG/3ML Solution 1 Inhalation Q6H Pregabalin 150 MG Capsule 2 Oral two times a day , stop date 12/19/2024Famotidine 20 MG Tablet 1 Oral two times a day , stop date 11/28/2024Glimepiride 1 MG Tablet 1 tablet Orally twice a day Taking True Metrix Blood Glucose Test - Strip In Vitro , stop date 12/21/2024Taking Tradjenta 5 MG Tablet 1 Oral every day , stop date 12/01/2024Taking Tylenol 8 Hour 650 MG Tablet Extended Release Oral Taking metFORMIN HCl ER 500 MG Tablet Extended Release 24 Hour 2 Oral two times a day , stop date 01/22/2025Taking ProAir RespiClick 108 (90 Base) MCG/ACT Aerosol Powder Breath Activated 1-2 Inhalation every four hours Taking True Metrix Glucose Test Strip miscellaneous , Notes to Pharmacist: *Reorder from [facility] for eRx and Interaction Alerts*Taking Ipratropium-Albuterol 0.5-2.5 (3) MG/3ML Solution 1 Inhalation Q6H Taking Pregabalin 150 MG Capsule 2 Oral two times a day , stop date 12/19/2024Taking Famotidine 20 MG Tablet 1 Oral two times a day , stop date 11/28/2024Taking Glimepiride 1 MG Tablet 1 tablet Orally twice a day Not-TakingTadalafil 20 mg Tablet(s) 1/2 to 1 Oral every day , Notes to Pharmacist: *Pick strength-form from [facility] for eRX*Dexcom G6 Sensor Miscellaneous MISCELLANEOUS Medication List reviewed and reconciled with the patientNot-Taking Tadalafil 20 mg Tablet(s) 1/2 to 1 Oral every day , Notes to Pharmacist: *Pick strength-form from [facility] for eRX*Not-Taking Dexcom G6 Sensor Miscellaneous MISCELLANEOUS Medication List reviewed and reconciled with the patient * Allergies: J anuvia: rash - Allergy - Onset Date 05/05/2021imvastatin: chest pain - Allergy - Onset Date 05/05/2021Jardiance: diarrhea - Allergy - Onset Date 08/23/2021Influenza Vaccines: Allergy - Onset Date 05/05/2021ravastatin: constipation insomnia - Allergy - Onset Date 05/05/2021odeine PhosphateyesAllergies Verified. Objective: * Vitals: B P:146/68mm Hg, HR:80/min, RR:18/min, Temp:97.8F, Oxygen sat %:96%, Ht: 72.00 in, Wt:177lbs, Wt-k.29 kg, Ht-cm: 182.88 cm, BMI:24Index, Body Surface Area: 2.02. * Examination: G eneral Examination: General appearance: a lert, pleasant, well-nourished and in no acute distress. Head: n ormocephalic, atraumatic. Eyes: b oth eyes, extraocular movement intact (EOMI), pupils equal, round, reactive to light and accommodation, conjunctiva clear. Ears: b oth ears, normal, auditory canal clear, tympanic membranes normal. Nose: n moira patent, no lesions. Oral cavity: n ormal, mucosa moist, tongue is midline, Lips benign. Throat: c lear, no erythema, no exudate, pharynx normal.? Neck / thyroid: n brent is supple with no cervical lymphadenopathy, trachea midline. Lymph nodes: n o cervical lymphadenopathy. Skin: s kin is warm and dry, with no rashes, good skin turgor and normal hair distribution. Heart: r egular rate and rhythm without murmurs, gallops, clicks or rubs, S1 and S2 are normal and no S3 and S4 gallop. Lungs: c lear to auscultation bilaterally, with good air movement and no rales, rhonchi or wheezes. Abdomen: s oft with good bowel sounds, nontender, and no masses or hepatosplenomegaly. Back: n ormal, without kyphoscoliosis or tenderness. Musculoskeletal: N ormal bulk and tone in extremities. Extremities: n ormal extremity with no clubbing, cyanosis or edema. Peripheral pulses: 2 + dorsalis pedis, 2+ posterior tibial, 2+ radial, 2+ carotid. Neurologic: a lert and oriented. Gait wobbly, slow, and staggering.. Psych: a lert and oriented x 3, cognitive function intact, maintains good eye contact, normal affect / mood, speech is clear and coherent. Foot exam: . Assessment: * Assessment: 1. T ype 2 diabetes mellitus with diabetic neuropathy, unspecified - E11.40 (Primary) ? S pecify :Src Problem: Type 2 diabetes mellitus with diabetic neuropathy 2 . P eripheral vascular disease, unspecified - I73.9 S pecify :Src Problem: (I73.9 - ) Peripheral vascular disease, unspecified 3 . S adenike stenosis, cervical region - M48.02 S pecify :Src Problem: Cervical spinal stenosis 4 . P rostate cancer screening - Z12.5 5 . C hronic anemia - D64.9 6 . V itamin B12 deficiency - E53.8 7 . E ncounter for immunization - Z23 8 . D ermatitis - L30.9 9 . T esticular hypofunction - E29.1 1 0. O cclusion and stenosis of bilateral carotid arteries - I65.23 1 1. A neurysm of iliac artery - I72.3 1 2. C ervical cord myelomalacia - G95.89 Plan: * Treatment: 2. P eripheral vascular disease, unspecified Notes: Need to see what he is due for since he is unwilling to see previous CV specialist as he reports they had an argument about a statin. 3. S adenike stenosis, cervical region Notes: f/u with surgeon - sending previous MRI to Dr. Lockwood to let he know his Hx there. Balance issues and muscle atrophy and all findings are multifactorial. 4. P rostate cancer screening Notes: PSA was normal. 5. C hronic anemia Notes: overall unchanged. No longer seeing hematology. Monitor iron and Hb through bloodwork. Stable. 6. V itamin B12 deficiency Notes: Rec B12 shots - he is behind on coming in for these. 1 injetion given today. 7. E ncounter for immunization Notes: 2nd shingles given today. 8. D ermatitis Notes: Rx triaminconolone refill for dry patches on his back. 9. O thers Notes: Shingles Vaccination - Due for the second Shingrix vaccine, within the recommended 2-6 month window after the first dose received on June 17, 2024. - Administer the second Shingrix vaccine today. Diabetes Management - Current A1c is 7.9. Issues with Tradjenta due to cost and side effects (low blood sugar). Previous rash with Januvia. Considering Onglyza as an alternative. - Contact pharmacy to explore alternatives for Tradjenta, including Onglyza. Continue metformin twice daily. Check with pharmacy for copay details. End result = januvia low dose suggested - pt doesn't feel listed allergy is true since had diarrhea and many things going on - willing to try again. Anemia and Iron Deficiency - Hemoglobin is 10.7, indicating low normal levels. History of iron deficiency and testosterone deficiency. -Continue B12 shots, check iron studies routinely. Neck and Back Issues - Chronic myelomalacia and degenerative changes in the cervical spine with previous surgery. Muscle wasting and balance issues likely related to neck condition. - Provide a copy of the 2020 MRI to the neurosurgeon. Consider new MRI if recommended by the specialist. Continue physical therapy. Cholesterol Management - Previous issues with statins. Considering non-statin injectable options. - Check cholesterol levels. Discuss non-statin injectable options if cholesterol management is needed. Ex is repatha - pt will consider. Lipids aren't too bad but vascular disease and DM2 status warrant treatment - he states he may consider after his back issues get figured out. Prostate Cancer Screening PSA was normal currently. Follow-up - Regular follow-up needed due to multiple health issues. - Schedule next follow-up appointment in January. Appointments - Follow-up appointment on February 07, 2025, with the physical therapist. - MRI results to be sent to Dr. Rosa Lockwood, neurosurgeon, for review. * Immunizations: Shingrix : 0.5 mL (Route: Intramuscular) given by Carmenparker Weber on Left Deltoid * Therapeutic Injections: B12- Clinic stock : 1000 mcg (Route: Intramuscular) given by Carmen Keaster on right deltoid (Vitamin B12 deficiency) * Procedure Codes: G 2211 G 2211 Complexity Add-On * Follow Up: 3 Months (Reason: diabetes) Billing Information: * Visit Code: 75633 OFFICE VISIT EXTENSIVE. * Procedure Codes: G2211 G 2211 Complexity Add-On. * DATA ARCHITECT Sign off status: Completed true * Provider: Kika Ramos MD Date: 0 11/19/2024 Generated for Calvin degroot/Ian/Cristianitting on: 0 01/26/2025 08:45 AM CDT
--- OUTSIDE RECORDS SUMMARY | 2025-01-26 08:45 | XMS_ITS | Encounter Summary ---
Author Organization [facility] Address [address] [place] [address] Care Team Providers Care Physician/Allergy/Immunology Name Role Phone Anuradha Ramos MD Primary Care Provider Anuradha Ramos MD Primary Care Provider Anuradha Ramos MD Unavailable [phone] Toro Vizcarra MD Unavailable Unavailable Alfred Lowery MD Unavailable [phone] Ludwig Moiseslaina Frances APRN Unavailable [phone] Cosmo Castillo MD Unavailable [phone] Encounter Details Date Type Department Care Team (Late st Contact Info) Description 01/20/[address] 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 Not on file Not on file Not o n file documented as of this encounter Plan of Treatment Not on file documented as of this encounter Visit Diagnoses Not on filedocumented in this encounter Additional Health Concerns Infection Onset Date Last Indicated Resolved Time COVID-19 Rule Out 06/10/2020 06/10/2020 06/12/2020 12:37 PM CDT documented as of this encounter Care Teams Physician/Allergy/Immunology Relationship Specialty Start Date End Date Anuradha Ramos MD [address] [place] [address] PCP - General FAMILY PRACTICE 11/19/16 12/10/21 Anuradha Ramos MD [address] [place] [address] PCP - General FAMILY PRACTICE 12/11/21 Anuradha Ramos MD [address] [place] [address] FAMILY PRACTICE 12/11/21 Toro Vizcarra MD [address] [place] [address] CARDIOVASCULAR DISEASE 11/19/16 05/23/21 Alfred Lowery MD [address] [place] [address] CARDIOVASCULAR DISEASE 02/26/17 Moises Munroe APRN [address] [place] [address] Nurse Practitioner NURSE PRACTITIONER 05/02/20 Cosmo Castillo MD [address] [facility] [address] [place] [address] [place] Chargeback Specialist INTERVENTIONAL CARDIOLOGY 05/24/21 documented as of this encounter
--- OUTSIDE RECORDS SUMMARY | 2025-01-26 08:45 | XMS_ITS | Clinical Summary ---
Author Organization [facility] Address [address] [place] [address] Care Team Providers Care Grab Jack Man Name Role Phone Anuradha Ramos MD Primary Care Provider Anuradha Ramos MD Unavailable Alfred Lowery MD Unavailable Moises Munroe APRN Unavailable Cosmo Castillo MD Unavailable [phone] Allergies Active Allergy Reactions Criticality Noted Date Comments Empagliflozin Diarrhea 11/01/2022 Influenza Virus Vaccine Other (see comment) 07/2024 Pravastatin Other (see comment) 04/26/2020 INSOMNIA,CONSTIPAT ION Simvastatin Other (see comment),Chest pressure 04/26/2020 CHEST PAIN Sitagliptin Rash Low 04/26/2020 Medications metFORMIN 500 MG 24 hr tablet Take 2 tablets (1,000 mg total) by mouth 2 (two) times a day. 1 7 Active famotidine 20 MG tablet Take 1 tablet (20 mg total) by mouth 2 (two) times daily. Active albuterol sulfate HFA 108 (90 Base) MCG/ACT inhaler 2 Active glimepiride 1 MG tablet Take 1 tablet (1 mg total) by mouth every morning before breakfast. 2 Active Testosterone 1.62 % Gel Apply 1 Dose topically nightly at bedtime. 3 Active NORCO 5-325 MG tablet 0.5 tab, Oral, HS, PRN pain, moderate, 0 Refill(s), Maintenance 3 Active pregabalin (LYRICA) 150 MG capsule Take 1 capsule (150 mg total) by mouth daily. 3 Active ipratropium (ATROVENT) 0.02 % nebulizer solution mcg mL, NEB, 0 Refill(s) 2 Active diclofenac sodium (VOLTAREN) 1 % gel Apply 2 g topically. 3 Active Active Problems Problem Noted Date Diagnosed Date Lumbar facet arthropathy 11/29/2023 Lipoma of torso 11/10/2023 Lump in central portion of right breast 02/11/20 23 Anterior cervical adenopathy 08/31/2021 Left-shifted white blood cells 08/31/2021 Normochromic anemia 08/31/2021 Smoking greater than 40 pack years 08/31/2021 Coronary artery calcification 06/14/2021 Lumbar radiculopathy 01/04/2021 Radiculopathy, cervical region 01/04/2021 Claudication 02/21/2017 PVD (peripheral vascular disease) 02/11/2017 Pericardial effusion ([facility]) 02/11/2017 Dilated aortic root 02/11/2017 Tobacco abuse 02/11/2017 Erectile dysfunction 12/24/2014 Overview (02/26/2022): Date Onset: 12/24/2014 Diabetes mellitus, type II ([facility]/HCC HHS/HCC) Hyperlipidemia Encounters Date Type Department Care Team Description 12/08/2024 9:49 AM SOCIAL MEDIA CONTENT MANAGER - 12/08/2024 11:59 PM [facility] Hospital Encounter [facility] Therapy [address] [place] [address] Rosa Lockwood MD Davidson, Brooke M, ELECTRIC MOTOR REPAIRMAN Discharge Disposition: Home or Self Care (Routine Discharge) 12/08/2024 Travel 12/03/2024 10:09 AM SOCIAL MEDIA CONTENT MANAGER - 12/03/2024 11:59 PM SOCIAL MEDIA CONTENT MANAGER Hospital Encounter [facility] [address] [facility] [place] [address] Rosa Lockwood MD Wiegmann, Lacey M, PT Back Pain Discharge Disposition: Home or Self Care (Routine Discharge) 12/03/2024 Travel 11/30/2024 9:50 AM SOCIAL MEDIA CONTENT MANAGER - 11/30/2024 11:59 PM SOCIAL MEDIA CONTENT MANAGER Hospital Encounter [facility] [address] [facility] [place] [address] Rosa Lockwood MD McClenahan, Krystal M, PT Lumbar Pain Discharge Disposition: Home or Self Care (Routine Discharge) 11/30/2024 Travel 11/23/2024 10:22 AM SOCIAL MEDIA CONTENT MANAGER - 11/23/2024 11:59 PM SOCIAL MEDIA CONTENT MANAGER Hospital Encounter [facility] [address] [facility] [place] [address] Rosa Lockwood MD Hays, Michelle, ELECTRIC MOTOR REPAIRMAN Discharge Disposition: Home or Self Care (Routine Discharge) 11/23/2024 Travel 11/20/2024 9:51 AM SOCIAL MEDIA CONTENT MANAGER - 11/20/2024 11:59 PM SOCIAL MEDIA CONTENT MANAGER Hospital Encounter [facility] [address] [facility] [place] [address] Rosa Lockwood MD Timmermann, Candice P, ELECTRIC MOTOR REPAIRMAN Discharge Disposition: Home or Self Care (Routine Discharge) 11/20/2024 Travel 11/16/2024 10:24 AM SOCIAL MEDIA CONTENT MANAGER - 11/16/2024 11:59 PM SOCIAL MEDIA CONTENT MANAGER Hospital Encounter [facility] [address] [place] [address] Rosa Lockwood MD Hays, Michelle, ELECTRIC MOTOR REPAIRMAN Discharge Disposition: Home or Self Care (Routine Discharge) 11/16/2024 Travel 11/12/2024 9:53 AM SOCIAL MEDIA CONTENT MANAGER - 11/12/2024 11:59 PM SOCIAL MEDIA CONTENT MANAGER Hospital Encounter [facility] [address] [facility] [place] [address] Rosa Lockwood MD Mollett, Heather, ELECTRIC MOTOR REPAIRMAN Discharge Disposition: Home or Self Care (Routine Discharge) 11/12/2024 Travel 11/09/2024 10:22 AM SOCIAL MEDIA CONTENT MANAGER - 11/09/2024 11:59 PM SOCIAL MEDIA CONTENT MANAGER Hospital Encounter [facility] [address] [place] [address] Rosa Lockwood MD Hays, Michelle, ELECTRIC MOTOR REPAIRMAN Discharge Disposition: Home or Self Care (Routine Discharge) 11/09/2024 Travel 11/05/2024 10:23 AM SOCIAL MEDIA CONTENT MANAGER - 11/05/2024 11:59 PM SOCIAL MEDIA CONTENT MANAGER Hospital Encounter [facility] [address] [place] [address] Rosa Lockwood MD Wiegmann, Lacey M, PT Back Pain Discharge Disposition: Home or Self Care (Routine Discharge) 11/05/2024 Travel 10/30/2024 2:11 PM SOCIAL MEDIA CONTENT MANAGER - 10/30/2024 11:59 PM SOCIAL MEDIA CONTENT MANAGER Hospital Encounter [facility] [address] [place] [address] Rosa Lockwood MD Hays, Michelle, ELECTRIC MOTOR REPAIRMAN Discharge Disposition: Home or Self Care (Routine Discharge) 10/30/2024 Travel from Last 3 Months Immunizations Name Administration Dates Next Due Influenza Adult (Generic) 09/12/2020 Pneumococcal (Pneumovax 23) 08/20/2019, 6 Pneumococcal (Prevnar 13) 04/23/2016 Pneumovax 08/20/2019 Tdap (Generic) 04/23/2016 Family History Medical History Relation Comments Diabetes Mother Heart Attack Mother Coronary artery disease Other Diabetes Other Open Heart Other Relation Status Comments Brother Father (Age 87) Mother (Age 65) Other Social History Tobacco Use Types Packs/Day Years Used Date Smoking Tobacco: Every Day Cigarettes 1 40 Smokeless Tobacco: Never Tobacco Cessation:Ready to Q uit: Not Asked; Counseling Given: Not Answered Comments:doc will address Alcohol Use Standard Drinks/Week Comments Not Currently 0 (1 standard drink = 0.6 oz pur e alcohol) socially PHQ-2 Answer Date Recorded PHQ-2 Score - If the patient scores above 3, please move on to questions 3-9 0 01/04/2021 Sex and Gender Information Value Date Recorded Sex Assigned at Male 11/12/2024 9:53 AM SOCIAL MEDIA CONTENT MANAGER Legal Sex Male 9:48 PM CDT Gender Identity Not on file Sexual Orientation Not on file 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 on file Not on file Not o n file Not on file Not on file Not on file Not on file Last Filed Vital Signs Vital Sign Reading Time Taken Comments Blood Pressure 155/67 04/27/2024 1:47 PM CDT Pulse 67 04/27/2024 1:47 PM CDT Temperature 36.8 C (98.3 F) 04/27/2024 1:47 PM CDT Respiratory Rate 16 04/27/2024 1:47 PM CDT Oxygen Saturation 99% 04/27/2024 1:47 PM CDT Inhaled Oxygen Concentration - - Weight 80.6 kg (177 lb 11.1 oz) 03/11/2024 9:14 AM CDT Height 185.4 cm (6' 1 ) 11/06/2023 8:07 AM SOCIAL MEDIA CONTENT MANAGER Body Mass Index 23.44 11/06/2023 8:07 AM SOCIAL MEDIA CONTENT MANAGER Plan of Treatment Health Maintenance Due Date Last Done Comments Colorectal Cancer Screening Colonoscopy (10 Years) 1954 Kidney Health Evaluation 1954 Diabetes: Retinopathy Eye Exam 1972 Hepatitis C 1972 Lung Cancer Screening 2004 RSV Immunization or 60+ Years (1 - Risk 60-74 years 1-dose series) 2014 Hemoglobin A1C 03/12/2016 09/12/2015, 12/2014, 12/07/2013 Annual Medicare Wellness Visit 2019 Lipid Panel 11/27/2022 11/27/2021, 08/28, 11/30/2014 COVID-19 Vaccine ( - season) 2024 Influenza Adult (#1) 2024 09/12/2020 PHQ-2 (Physician [place]) 10/28/2024 Zoster Vaccines (2 of 2) 01/14/2025 11/19/2024 DTaP, Tdap and Td Vaccines (2 - Td or Tdap) 04/23/2026 04/23/2016 Pneumococcal Vaccine: 65+ Years Completed 08/20/2019, 08/20/2019, 04/23/2016, Additional history exists AAA SCREENING Completed 04/21/2020, 06/25/2019 Meningococcal B Vaccine Aged Out No l onger eligible based on patient's age to complete this topic Meningococcal Vaccine Aged Out No ever lilliana eligible based on patient's age to complete this topic RSV Immunizations Under 20 Months Aged Out No longer eligible based on patient's age to complete this topic Medical Devices Implanted Type Area Vehicle Safety Inspector Device Identifier Shelf Expiration Date Model / Serial / Lot Pv Express Ld Left Iliac Stent- 0 Implanted:Qty: 1 on 06/13/2020 by Alfred Lowery MD Stent Left: Iliac 04/13/2023 [id number] / / [id number] Cervical Spine Screws Spine Cervical Procedures Procedure Name Priority Date/Time Associated Diagnosis Comments LIPID PANEL Routine 11/27/2021 CTA AORTO ILIOFEM RUNOFF Routine 04/21/2020 12:10 PM CDT Esophageal reflux AAA (abdominal aortic aneurysm) HEMOGLOBIN, GLYCOSYLATED Routine 09/12/2015 10:50 AM SOCIAL MEDIA CONTENT MANAGER from Last 3 Months or Most Recently Relevant to Health Maintenance Results * LIPID PANEL (11/27/2021) CHOLESTEROL 172 HDL 29 TRIGLYCERIDES 182 LDL (CALCULATED) 111 VLDL CALCULATION 32 11/27/2021 Anuradha Ramos MD LABORATORY Final Result * CTA AORTO ILIOFEM RUNOFF (04/21/2020 12:10 PM CDT) Anatomical Region Laterality Modality Abdomen, Pelvis, Extremity Compu pankaj Tomography 04/22/2020 10:2 0 AM CDT Impressions 04/22/2020 10:45 AM CDT IMPRESSION: 1. There is a right common iliac artery stent graft which remains patent. 2. There is an area of high-grade stenosis within the distal abdominal aorta at the level of the bifurcation (series 5 image 114). This is related to severe atherosclerotic disease. 3. There is an area of high-grade stenosis within the mid right popliteal artery related to severe atherosclerotic disease. 4. No evidence of aneurysm or arterial dissection. Interpreted By: Rohan Wood DO, 04/22/2020 10:20 AM Narrative 04/22/2020 10:45 AM CDT EXAMINATION: CTA aorta iliofemoral runoff HISTORY: Chronic bilateral leg pain. History of iliac stents. Abdominal aortic aneurysm. COMPARISON: None. TECHNIQUE: Axial CTA images of the abdomen, pelvis, and bilateral lower extremities after the uneventful intravenous administration of 130 mL of Isovue-370 given through the left antecubital fossa. Sagittal and coronal reformatted image sets. Dedicated post processed 3-D reformatted image sets performed at a separate workstation. A dose lowering technique was used for this procedure, which may include, but is not limited to, dose reduction technique, limited exposure control, the use of degenerative reconstruction, and ALARA/image gently techniques. FINDINGS: VASCULAR: AORTA/ILIAC: There is diffuse atherosclerotic vascular disease. There is no abdominal aortic aneurysm. No evidence of arterial dissection. The celiac, superior mesenteric, and renal arteries are patent. The inferior mesenteric artery is not well seen, likely chronic. No evidence of bowel ischemia. There is an area of significant narrowing within the distal abdominal aorta at the level of the bifurcation related to atherosclerotic plaque. This is best demonstrated on series 5 image 114. The common and external iliac arteries remain patent bilaterally. The internal iliac arteries appear patent bilaterally. There is severe atherosclerotic disease. There is a right common iliac vascular stent graft which is patent. RIGHT LEG: The right common femoral and superficial femoral arteries remain patent. The deep femoral artery is patent. The popliteal artery remains patent to the level of the trifurcation. There is an area of approximately 80-90% narrowing within the mid popliteal artery related to atherosclerotic plaque. The anterior and posterior tibial arteries remain patent to the level of the ankle. The peroneal artery is patent to the level of the ankle. LEFT LEG: The left common femoral and superficial femoral arteries remain patent. The deep femoral artery is patent. The popliteal artery remains patent to the level of the trifurcation. No evidence of significant stenosis. The anterior and posterior tibial arteries remain patent to the level of the ankle. The peroneal artery is patent to the level of the ankle. ABDOMEN/PELVIS: There is mild bibasilar dependent atelectasis. There is an approximately 5 mm pleural-based nodule in the right middle lobe, most likely to be benign. The heart is normally sized. The liver, gallbladder, pancreas, spleen, and adrenals are negative. No acute appearing renal abnormalities. There are simple appearing renal cysts bilaterally. No ascites or free intraperitoneal air. No bowel obstruction. No evidence of inflammatory change. No lymphadenopathy. The urinary bladder is unremarkable. There is no free pelvic fluid. There are pelvic phleboliths. The prostate gland is enlarged. OSSEOUS: No acute osseous abnormalities identified. Procedure Note Rohan Wood, DO - 04/22/2020 EXAMINATION: CTA aorta iliofemoral runoff HISTORY: Chronic bilateral leg pain. History of iliac stents. Abdominal aortic aneurysm. COMPARISON: None. TECHNIQUE: Axial CTA images of the abdomen, pelvis, and bilateral lower extremities after the uneventful intravenous administration of 130 mL of Isovue-370 given through the left antecubital fossa. Sagittal and coronalreformatted image sets. Dedicated post processed 3-D reformatted image setsperformed at a separate workstation. A dose lowering technique was used for this procedure, which mayinclude, but is not limited to, dose reduction technique, limited exposurecontrol, the use of degenerative reconstruction, and ALARA/image gentlytechniques. FINDINGS: VASCULAR: AORTA/ILIAC: There is diffuse atherosclerotic vascular disease. There isno abdominal aortic aneurysm. No evidence of arterial dissection. Theceliac, superior mesenteric, and renal arteries are patent. The inferiormesenteric artery is not well seen, likely chronic. No evidence of bowel ischemia. There is an area of significant narrowing within the distal abdominalaorta at the level of the bifurcation related to atherosclerotic plaque. Thisis best demonstrated on series 5 image 114. The common and external iliac arteries remain patent bilaterally. The internal iliac arteries appear patent bilaterally. There is severe atherosclerotic disease. There is a right common iliac vascular stent graft which is patent. RIGHT LEG: The right common femoral and superficial femoral arteriesremain patent. The deep femoral artery is patent. The popliteal artery remains patent to the level of the trifurcation. There is an area ofapproximately 80-90% narrowing within the mid popliteal artery related toatherosclerotic plaque. The anterior and posterior tibial arteries remain patent to the level of the ankle. The peroneal artery is patent to the level of the ankle. LEFT LEG: The left common femoral and superficial femoral arteriesremain patent. The deep femoral artery is patent. The popliteal artery remains patent to the level of the trifurcation. No evidence of significant stenosis. The anterior and posterior tibial arteries remain patent tothe level of the ankle. The peroneal artery is patent to the level of the ankle. ABDOMEN/PELVIS: There is mild bibasilar dependent atelectasis. There isan approximately 5 mm pleural-based nodule in the right middle lobe, most likely to be benign. The heart is normally sized. The liver, gallbladder, pancreas, spleen, and adrenals are negative. No acute appearing renal abnormalities. There are simple appearing renalcysts bilaterally. No ascites or free intraperitoneal air. No bowel obstruction. Noevidence of inflammatory change. No lymphadenopathy. The urinary bladder is unremarkable. There is no free pelvic fluid.There are pelvic phleboliths. The prostate gland is enlarged. OSSEOUS: No acute osseous abnormalities identified. IMPRESSION: 1. There is a right common iliac artery stent graft which remainspatent. 2. There is an area of high-grade stenosis within the distal abdominal aorta at the level of the bifurcation (series 5 image 114). This isrelated to severe atherosclerotic disease. 3. There is an area of high-grade stenosis within the mid rightpopliteal artery related to severe atherosclerotic disease. 4. No evidence of aneurysm or arterial dissection. Interpreted By: Rohan Wood DO, 04/22/2020 10:20 AM us Anuradha Ramos MD CT Final Result * (ABNORMAL) HEMOGLOBIN, GLYCOSYLATED (09/12/2015 10:50 AM SOCIAL MEDIA CONTENT MANAGER) HGB A1C 8.1(H) 4.8 - 5.9 % [facility] TO EPIC CONVERSION Comment: Note: Hemoglobinopathies such as HbF, HbS, etc. may give incorrect results with this test. GLUCOSE 184 mg/dL [facility] T O EPIC CONVERSION 09/12/2015 10:5 0 AM SOCIAL MEDIA CONTENT MANAGER 09/12/2015 10:50 AM SOCIAL MEDIA CONTENT MANAGER Narrative [facility] TO EPIC CONVERSION - 09/12/2015 11:11 AM SOCIAL MEDIA CONTENT MANAGER This lab was migrated from [employer] and may be missing annotations or result text, please check the Media tab for the most complete results. us Anuradha Ramos MD LABORATORY Final Result [facility] TO EPIC CONVERSION from Last 3 Months or Most Recently Relevant to Health Maintenance Insurance MEDICARE Percentil [facility] MEDICARE Care Teams Grab Jack Man Relationship Specialty Start Date End Date Anuradha Ramos MD [address] [place] [id number] PCP - General FAMILY PRACTICE 12/11/21 Anuradha Ramos MD [address] [place] [id number] [facility] PR[facility] 12/11/21 Alfred Lowery MD [address] [place] [id number] CARDIOVASCULAR DISEASE 02/26/17 Moises Munroe APRN [address] [place] [id number] Nurse Practitioner NURSE PRACTITIONER 05/02/20 Cosmo Castillo MD [address] [facility] [address] [place] [address] [place] [employer] Ticket Selling INTERVENTIONAL CARDIOLOGY 05/24/21
--- OUTSIDE RECORDS SUMMARY | 2025-01-26 08:46 | XMS_ITS | Clinical Summary ---
Author Organization [facility] Address [address], [facility] [address] [place] [address] Phone Care Team Providers Care Plaster Molder Name Role Phone Anuradha Ramos MD Primary Care Provider Darrick Martinez MD Unavailable [phone] Allergies Active Allergy Reactions Criticality Noted Date Comments Empagliflozin Diarrhea 11/01/2022 Influenza Vaccines Unknown 08/31/2021 Sitagliptin Rash 08/31/2021 Pravastatin Other (see Comments) 08/31/2021 Constipation and insomnia Simvastatin Other (see Comments) 08/31/2021 Chest pain Medications metFORMIN (GLUCOPHAGE) 500 MG Tablet Take 1,000 mg by mouth 2 times daily (with meals). Active famotidine (PEPCID) 20 MG Tablet Take 20 mg by mouth 2 times daily. Active glimepiride (AMARYL) 1 MG Tablet as needed. 07/10/2022 Active ezetimibe (ZETIA) 10 MG Tablet Take 10 mg by mouth daily. Active pregabalin (LYRICA) 100 MG Capsule Take 100 mg by mouth daily. 10/27/2022 Active Active Problems Problem Noted Date Diagnosed Date Normochromic anemia 08/31/2021 Smoking greater than 40 pack years 08/31/2021 Anterior cervical adenopathy 08/31/2021 Left-shifted white blood cells 08/31/2021 Family History Medical History Relation Name Comments Heart Disease Mother Relation Name Status Comments Brother Father Mother Social History Tobacco Use Types Packs/Day Years Used Date Smoking Tobacco: Every Day Cigarettes Smokeless Tobacco: Never Tobacco Cessation:Ready to Q uit: Not Asked; Counseling Given: Not Answered Alcohol Use Standard Drinks/Week Comments Yes 0 (1 standard drink = 0.6 oz pur e alcohol) Socially PHQ-2 Answer Date Recorded Total Score - Questions 1-9 0 06/28 Sex and Gender Information Value Date Recorded Sex Assigned at Not on file Legal Sex Male 1:13 PM CDT Gender Identity Not on file Sexual Orientation Not on file Last Filed Vital Signs Vital Sign Reading Time Taken Comments Blood Pressure 160/60 11/29/2022 10:04 AM CREATIVE PRODUCER Pulse 95 11/29/2022 10:04 AM CREATIVE PRODUCER Temperature 36.6 C (97.9 F) 11/29/2022 10:04 AM CREATIVE PRODUCER Respiratory Rate 16 11/29/2022 10:0 4 AM CREATIVE PRODUCER Oxygen Saturation 97% 11/29/2022 10: 04 AM CREATIVE PRODUCER Inhaled Oxygen Concentration - - Weight 79.2 kg (174 lb 11.2 oz) 023 10:04 AM CREATIVE PRODUCER Height 182.9 cm (6') 11/29/2022 10:04 AM CREATIVE PRODUCER Body Mass Index 23.69 11/29/2022 10:04 AM CREATIVE PRODUCER Plan of Treatment Health Maintenance Due Date Last Done Comments Hepatitis C Virus (HCV) Screening 1955 Colonoscopy 1999 Colorectal Cancer Screening 1999 Cologuard 2004 Immunochemical Fecal Occult Blood 2004 Zoster Immunization (1 of 2) 2004 SARS-COV-2 Immunization ( season) 2024 11/10/2021, 12/24/2020, 11/26/2020 Respiratory Syncytial Virus (RSV) Immunization (Adult) (1 - 1-dose 75+ series) 2029 DTaP/Tdap/Td Immunization Discontinued 04/23/2016 TdaP Immunization Completed 04/23/2016 Pneumococcal Immunization (5 0+ years) Completed 08/20/2019, 04/23/2016, 04/03/2016 Hepatitis B Immunization Aged Out No longer eligible based on patient's age to complete this topic Meningococcal Immunization (ACWY) Aged Out No longer eligible based on patient's age to complete this topic Rotavirus Immunization Aged Out No lo nger eligible based on patient's age to complete this topic Insurance MEDICARE [facility] Care Teams Plaster Molder Relationship Specialty Start Date End Date Anuradha Ramos MD [address] [place] [address] PCP - General Family Medicine 08/08/21 Darrick Martinez MD [facility] [address] Consulting Physician Oncology 08/08/21
--- OUTSIDE RECORDS SUMMARY | 2025-01-26 08:46 | XMS_ITS ---
Author Organization [facility] Address [address] [place] [address] Care Team Providers Care Engine Cowling Installer Name Role Phone Anuradha Ramos Primary Care Provider [phone] Results Component Value Reference Range Flag Notes Hemoglobin A1c {Glycosylated } Reviewed date:01/25/2025 07:41:30 PM Interpretation: Performing Lab: Notes/Report: Test Performed by: [address] [address] Yarn Winder: José Antonio Pacheco DO Hemoglobin A1c 7.7 <=6.4 % H Hemoglobin A1C < 5.7% = Normal 5.7-6.4% = Increased risk for future diabetes >=6.5% = Diabetes eAvg Glucose 174 <=117 mg/dL H eAG Reference Range <117 mg/dL = Normal 117-137 mg/dL = Increased Risk For Future Diabetes >137 mg/dL = Diabetes Vitamin D 25 Hydroxy Reviewed date:01/25/2025 07:41:30 PM Interpretation: Performing Lab: Notes/Report: Test Performed by: [address] [address] Yarn Winder: Jsoé Antonio Pacheco DO Vitamin D 25 OH 31 30-100 ng/mL Vitamin D25 Interpretation: Deficient: <= 20 ng/mL Insufficient: 21-29 ng/mL Sufficient: 30-100 ng/mL Upper Safety Limit: >100 ng/mL T4 Free Reviewed date:01/25/2025 07:41:30 PM Interpretation: Performing Lab: Notes/Report: Test Performed by: [address] [address] Yarn Winder: José Antonio Junior, DO T4 Free 0.87 0.60-1.70 ng/dL CBC w Auto Diff Reviewed date:01/25/2025 07:41:30 PM Interpretation: Performing Lab: Notes/Report: Test Performed by: [address] [address] Yarn Winder: José Antonio Pacheco DO WBC 7.5 4.0-11.7 K/mcL RBC 3.46 4.28-5.56 x10*6/mcL L Hgb 10.0 13.0-17.0 g/dL L Hct 29.8 38.1-48.9 % L MCV 86.2 83.4-98.1 fL MCH 28.8 27.0-34.2 pg MCHC 33.4 31.8-35.3 g/dL RDW 18.9 12.0-16.4 % H Platelets 290 149-393 K/mcL MPV 8.4 7.0-11.0 fL Neutro Auto 59.9 45.3-79.0 % Lymph Auto 26.7 11.8-45.9 % [place] Auto 12.0 4.4-12.0 % Eosinophil Auto 0.5 0.0-6.3 % Basophil Auto 0.9 0.2-1.6 % Neutro Absolute 4.5 2.4-8.4 x10*3/mcL Lymph Absolute 2.0 0.8-3.7 x10*3/mcL [place] Absolute 0.9 0.3-1.1 x10*3/mcL Baso Absolute 0.1 0.0-0.1 x10*3/mcL Segs Man 60.0 45.3-79.0 % Band Man 1.0 0.0-6.0 % Lymph Man 27.0 11.8-45.9 % Monocyte Man 9.0 4.4-12.9 % Eos Man 2.0 0.0-6.3 % Neut Absolute Manual 4.6 Lymph Absolute Manual 2.0 [place] Absolute Manual 0.7 Eos Absolute Manual 0.2 Myelo Man 1.0 0.0-0.0 % H Anisocyte 1+ A Comprehensive Metabolic Pane l Reviewed date:01/25/2025 07:41:30 PM Interpretation: Performing Lab: Notes/Report: Test Performed by: [place] [id number] Yarn Winder: José Antonio Pacheco DO Glucose Lvl 255 74-109 mg/dL H ADA risk stratification for diabetes <100 mg/dL = Normal 100-125 mg/dL = Increased risk for future diabetes >=126 mg/dL = Diabetes, if on more than one testing occasion BUN 28 7-25 mg/dL H Creatinine Lvl 1.50 0.70-1.30 mg/dL H eGFR CKD-EPI 50 >=90 mL/min/1.73 m2 L The CKD-EPI equation is validated in individuals 18 years of age and older. It is less accurate in patients with extremes of muscle mass, restriction of dietary protein, ingestion of creatine, extra-renal metabolism of creatinine, or treatment with medications that affect renal tubular creatinine secretion. GFR Categories in Chronic Kidney Disease (CKD) GFR GFR (mL/min/1.73 Category: square meters): Interpretation: G1 90 or greater Normal or high* G2 60-89 Mild decrease* G3a 45-59 Mild to moderate decrease G3b 30-44 Moderate to severe decrease G4 15-29 Severe decrease G5 14 or less Kidney failure *In the absence of evidence of kidney damage, neither GFR category G1 nor G2 fulfill the criteria for CKD (Kidney Int Suppl 2013;3:1-150) Calcium Lvl 9.6 8.6-10.3 mg/dL Sodium Lvl 140 136-145 mmol/L Potassium Lvl 4.7 3.5-5.1 mmol/L Chloride Lvl 104 98-107 mmol/L CO2 27 21-31 mmol/L Anion Gap 8.9 <=16.0 mmol/L Alk Phos 90 34-104 unit/L Bilirubin Total 0.3 0.3-1.0 mg/dL Albumin Lvl 4.2 3.5-5.2 g/dL Protein Total 6.9 6.4-8.9 g/dL Albumin/Globulin Ratio 1.5 1.1-2.5 ALT 12 7-52 unit/L AST 13 13-39 unit/L Lipid Panel {Chol, Trig, HDL , LDL} Reviewed date:01/25/2025 07:41:30 PM Interpretation: Performing Lab: Notes/Report: Test Performed by: [place] [id number] Yarn Winder: José Antonio Pacheco DO Cholesterol Total 161 <=199 mg/dL Triglycerides 218 0-149 mg/dL H Triglyceride Reference Ranges: <150 mg/dL Normal 150 - 199 mg/dL Borderline High 200 - 499 mg/dL High >=500 mg/dL Very High LDL 85 <=100 mg/dL LDL Optimal: <100 Near or above optimal: 100-129 Borderline high: 130-159 High: 160-189 Very high: >=190 Coronary heart disease risk factors should be considered when determining LDL goals. Please refer to ATPIII guidelines for further information. If LDL is not calculated, please call the lab to add on the direct LDL methodology, if desired. HDL 32 23-92 mg/dL Non HDL Cholesterol 129 <=130 mg/dL Chol/HDL 5 0-5 Coronary Risk 20 Coronary Risk Factor - Male Dangerous Risk: <7 % High Risk: 7-15 % Average Risk: 15-25 % Below Average Risk: 25-37 % Coronary Risk Factor - Female Dangerous Risk: <12 % High Risk: 12-18 % Average Risk: 18-27 % Below Average Risk: 27-40 % Vitamin B12 Reviewed date:01/25/2025 07:41:30 PM Interpretation: Performing Lab: Notes/Report: Test Performed by: [address] [address] Yarn Winder: José Antonio Pacheco DO Vitamin B12 Lvl 357 180-914 pg/mL Vitamin B12 Interpretation: Normal Range: 180-914 pg/mL Indeterminate: 140-180 pg/mL Deficient: <140 pg/mL PSA Annual Screening Reviewed date:01/25/2025 07:41:30 PM Interpretation: Performing Lab: Notes/Report: Test Performed by: [address] [address] Yarn Winder: José Antonio Pacheco DO PSA Total 0.79 0.00-4.00 ng/mL EFF Lab Review Reviewed date:01/25/2025 07:41:30 PM Interpretation: Performing Lab: Notes/Report: Test Performed by: [address] [address] Yarn Winder: José Antonio Pacheco DO EFF Lab Review Mandif Reflexed REASON FOR VISIT Labs for upcoming OV Encounters Encounter Location Date Provider Diagnosis [address] [address] 01/25/2025 Anuradha Ramos Type 2 diabetes mellitus with hyperglycemia E11.65 ; Encounter for general adult medical examination without abnormal findings Z00.00 ; 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 ; Mixed hyperlipidemia E78.2 ; Prostate cancer screening Z12.5 and Other solar thermal technician (current) drug therapy Z79.899 Assessments Encounter Date Diagnosis (ICD Code) Assessment Notes Treat ment Notes Treatment Clinical Notes 01/25/2025 Type 2 diabetes mellitus with hyperglycemia (ICD-10 - E11.65) 01/25/2025 Encounter for genera l adult medical examination without abnormal findings (ICD-10 - Z00.00) 01/25/2025 Deficiency of other specified B group vitamins (ICD-10 - E53.8) 01/25/2025 Mixed hyperlipidemia (ICD-10 - E78.2) 01/25/2025 Prostate cancer screening (ICD-10 - Z12.5) 01/25/2025 Other half-way (current) drug therapy (ICD-10 - Z79.899) Plan Of Treatment Next Appt Details Provider Name:Anuradha Ramos , 01/29/2025 11:30:00 AM, [employer] [place], [address], [id number] Provider Name:Anuradha Ramos , 05/10/2025 10:00:00 AM, [employer] [place], [address], [id number] Provider Name:Lonny carlos, 06/18/2025 08:45:00 AM, [employer] [address], [place], [address], [phone] Provider Name:Anuradha Ramos , 08/16/2025 10:00:00 AM, [employer] [address], [place], [address], [phone] Progress Notes * Vinayak ZAYAS ADOB: [birth year] (69 yo M)Acc No.[id number]:01/25/2025 Patient: Vinayak IZQUIERDO :1955 A ge:69 Y S ex:Male Phone: Address:[address] [place] [address], [facility] [address] Subjective: * Chief Complaints: * L abs for upcoming OV * Medical History: * Surgical History: * Hospitalization/Major Diagno stic Procedure: * Medications: Objective: * Physical Examination: Assessment: * Assessment: 1. T ype 2 diabetes mellitus with hyperglycemia - E11.65 2 . E ncounter for general adult medical examination without abnormal findings - Z00.00 3 . 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 M ixed hyperlipidemia - E78.2 5 . P rostate cancer screening - Z12.5 6 . O ther solar thermal technician (current) drug therapy - Z79.899 Plan: * Treatment: 2. D eficiency of other specified B group vitamins L AB: Vitamin B12 3. M ixed hyperlipidemia L AB: Lipid Panel {Chol, Trig, HDL, LDL} 4. P rostate cancer screening L AB: PSA Annual Screening 5. O ther half-way (current) drug therapy L AB: Vitamin D 25 Hydroxy L AB: T4 Free * Procedure Codes: Billing Information: * Visit Code: * Procedure Codes: * true * Date: Generated for Calvin degroot/Ian/eTbalajismitting on: 0 01/26/2025 08:45 AM CDT
--- OUTSIDE RECORDS SUMMARY | 2025-01-26 08:46 | XMS_ITS | Encounter Summary ---
Author Organization [facility] Address [address] [place] [address] Phone Care Team Providers Care Sexer Name Role Phone Anuradha Ramos MD Primary Care Provider Darrick Martinez MD Unavailable [phone] Reason for Referral * Consult, Test & Initiate Treatment (Routine) - Closed Specialty Diagnoses / Procedures Referred By Jamila t Referred To Contact Diagnoses Normochromic anemia Iron deficiency anemia due to chronic blood loss Smoking greater than 40 pack years Chronic fatigue Anterior cervical adenopathy Left-shifted white blood cells Breast mass in male Shalom Escobar MD [address] [place] [address] [place] [address] Phone: tel: fax: Tommy Rangel MD [address] [address] Phone: tel: fax: Referral ID Status Reason Start Date Expiration Date Visits Re quested Visits Authorized [id number] Closed 11/30/2022 1 1 Scheduling Instructions Please refer Vinayak to Dr Rangel due to an abnormal mammogram and breast US. ISITION PROFESSIONAL Reason for Visit * Reason Onset Date Comments referral to Dr Rangel 11/30/2022 Encounter Details Date Type Department Care Team (Late st Contact Info) Description 11/30/[address] [place] [address] Shalom Escobar MD [address] [facility] [address] Rangel Social History Tobacco Use Types Packs/Day Years [...] was confirmed or suspected to have Coronavirus/COVID-19? No / Unsure 11/29/2022 9:59 AM ACQUISITION PROFESSIONAL documented as of this encounter Miscellaneous Notes * Telephone Encounter - Stan Beasley - 12/03/2022 8:15 AM CST Referral sent. ISITION PROFESSIONAL * Telephone Encounter - Shalom Escobar MD - 11/30/2022 4:42 PM CST Agree with above. ISITION PROFESSIONAL * Telephone Encounter - Adia Priest LPN - 11/30/2022 2:55 PM CST I called Vinayak with Dr Escobar's recommendations. He voiced understanding. He is willing to see Dr Rangel. I entered the referral order. Scheduling: Please arrange the referral. ISITION PROFESSIONAL ISITION PROFESSIONAL * Telephone Encounter - Adia Priest LPN - 11/30/2022 2:[address] Escobar: Vinayak had a mammo and US. Vinayak was seen for an appt yesterday. The findings were discussed with Dr Moore. Dr Moore did not feel a bx was necessary and the referral that Dr Escobar made to him was cancelled. Dr Marcus called and spoke with Dr Escobar today. He feels there could be a malignancy in or behind the gynecomastia. This case was also discussed with Dr Rangel. Dr Rangel is willing to see Vinayak. Vinayak needs a referral to Dr Rangel. ISITION PROFESSIONAL documented in this encounter Plan of Treatment Scheduled Referrals Name Type Priority Associated Diagnoses Orde r Schedule EXTERNAL GEN SURGICAL REFERRAL HST Outpatient Referral Routine Normochromic anemia Iron deficiency anemia due to chronic blood loss Smoking greater than 40 pack years Chronic fatigue Anterior cervical adenopathy Left-shifted white blood cells Breast mass in male Expected: 11/30/2022, Expires: 12/28/2022 documented as of this encounter Visit Diagnoses Diagnosis Normochromic anemia- Primary Anemia, unspecified Iron deficiency anemia due to chronic blood loss Iron deficiency anemia secondary to blood loss (chronic) Smoking greater than 40 pack years Tobacco use disorder Chronic fatigue Other malaise and fatigue Anterior cervical adenopathy Enlargement of lymph nodes Left-shifted white blood cells Breast mass in male Lump or mass in breast documented in this encounter Additional Health Concerns Assessment Noted Time PHQ-9 Depression Total Score: 0 08/31/20 21 3:36 PM CDT documented as of this encounter Care Teams Sexer Relationship Specialty Start Date End Date Anuradha Ramos MD [address] [place] [address] PCP - General Family Medicine 08/08/21 Darrick Martinez MD [address] [place] [address] [address] [place] [address] Consulting Physician Oncology 08/08/21 documented as of this encounter
--- OUTSIDE RECORDS SUMMARY | 2025-01-26 08:46 | XMS_ITS | Encounter Summary ---
Author Organization [facility] Address [address] [place] [address] Phone Care Team Providers Care Aerial Hurricane Hunter Name Role Phone Anuradha Ramos MD Primary Care Provider Darrick Martinez MD Unavailable Reason for Visit * Reason Onset Date Comments low energy 08/27/2022 Encounter Details Date Type Department Care Team (Late st Contact Info) Description 08/27/[address] [place] [address] Shalom Escobar MD [address] [place] [address] [place] [address] low energy Social History Tobacco Use Types Packs/Day Years [...] suspected to have Coronavirus/COVID-19? No / Unsure 08/30/2022 1:26 PM CDT documented as of this encounter Miscellaneous Notes * Telephone Encounter - Eliana Moreno - 08/30/2022 10:22 AM CDT Pt coming today at 130 * Telephone Encounter - Shalom Escobar MD - 08/29/2022 5:21 PM CDT Pls call pt and family -- despite the fact that his anemia is slightly better, his Iron levels are all a lot lower which can explain why he is weaker despite taking the iron tabs. I think that he would benefit from IV Iron. If he is agreeable to IV Iron, I can see him in [place] on , 08/30/22 for f/u and IV Iron 2hr. Keep me posted. * Telephone Encounter - Adia Priest LPN - 08/29/2022 4:42 PM CDT The results are scanned in. Please advise. * Telephone Encounter - Adia Priest LPN - 08/28/2022 12:17 PM CDT I called [facility] and requested the results. * Telephone Encounter - Shalom Escobar MD - 08/27/2022 10:26 PM CDT Pls f/u on the lab results and let me know. * Telephone Encounter - Adia Priest LPN - 08/27/2022 4:40 PM CDT I called [facility] lab. I was told the hgb is 11.6. The lab staff said nothing else is critical thus far. I explained that we are waiting on the results. They will fax them to us as soon as they are all available. * Telephone Encounter - Adia Priest LPN - 08/27/2022 12:18 PM CDT I spoke with Tess about Dr Escobar's recommendations. She voiced understanding. Lab order sent to [facility]. I will watch for results. * Telephone Encounter - Adia Priest LPN - 08/27/2022 12:[address] Escobar: Please check a stat cbc, cmp, ldh, mg, iron panel, ferritin and hold clot at [facility]. * Telephone Encounter - Adia Priest LPN - 08/27/2022 8:10 AM CDT Vinayak's girlfriend called. Vinayak had been c/o no energy for several weeks. He denies SOB or CP.He is eating and drinking as normal. He c/o fatigue and has to rest frequently. He is taking a PO iron pill as recommended at his last appt. She asks if Vinayak can get labs drawn? documented in this encounter Plan of Treatment Scheduled Orders Name Type Priority Associated Diagnoses Orde r Schedule CMP (COMPREHENSIVE METABOLIC PANEL) Lab STAT Normochromic anemia Smoking greater than 40 pack years Chronic fatigue Iron deficiency anemia due to chronic blood loss Anterior cervical adenopathy Left-shifted white blood cells Expected: 08/27/2022, Expires: 11/02/2022 MAGNESIUM (MG) Lab STAT Normochromic anemia Smoking greater than 40 pack years Chronic fatigue Iron deficiency anemia due to chronic blood loss Anterior cervical adenopathy Left-shifted white blood cells Expected: 08/27/2022, Expires: 11/02/2022 LACTATE DEHYDROGENASE (LD) Lab STAT Normochromic anemia Smoking greater than 40 pack years Chronic fatigue Iron deficiency anemia due to chronic blood loss Anterior cervical adenopathy Left-shifted white blood cells Expected: 08/27/2022, Expires: 11/02/2022 IRON W/ IRON BINDING CAPACITY [place] Lab STAT Normochromic anemia Smoking greater than 40 pack years Chronic fatigue Iron deficiency anemia due to chronic blood loss Anterior cervical adenopathy Left-shifted white blood cells Expected: 08/27/2022, Expires: 11/02/2022 HOLD CLOT [place] Lab STAT Normochromic anemia Smoking greater than 40 pack years Chronic fatigue Iron deficiency anemia due to chronic blood loss Anterior cervical adenopathy Left-shifted white blood cells Expected: 08/27/2022, Expires: 11/02/2022 documented as of this encounter Results * COMPLETE BLOOD COUNT (CBC) WITH DIFF (09/12/2022) Blood us Shalom Escobar MD HEMATOLOGY ORDERABLES Final Resu lt Performing Organization Address [facility] Co de Phone Number [facility] [place] [address], * FERRITIN (08/27/2022) Blood us Shalom Escobar MD CHEMISTRY ORDERABLES Final Resul t Performing Organization Address [facility] Co de Phone Number [facility] [place] [address], documented in this encounter Visit Diagnoses Diagnosis Normochromic anemia- Primary Anemia, unspecified Smoking greater than 40 pack years Tobacco use disorder Chronic fatigue Other malaise and fatigue Iron deficiency anemia due to chronic blood loss Iron deficiency anemia secondary to blood loss (chronic) Anterior cervical adenopathy Enlargement of lymph nodes Left-shifted white blood cells documented in this encounter Additional Health Concerns Assessment Noted Time PHQ-9 Depression Total Score: 0 08/31/20 21 3:36 PM CDT documented as of this encounter Care Teams Aerial Hurricane Hunter Relationship Specialty Start Date End Date Anuradha Ramos MD [address] [place] [address] PCP - General Family Medicine 08/08/21 Darrick Martinez MD [address] [address] Consulting Physician Oncology 08/08/21 documented as of this encounter
--- OUTSIDE RECORDS SUMMARY | 2025-01-26 08:46 | XMS_ITS | Encounter Summary ---
Author Organization [facility] Address [address] [place] [address] Care Team Providers Care Transformer Maker Name Role Phone Anuradha Ramos MD Primary Care Provider Anuradha Ramos MD Primary Care Provider Anuradha Ramos MD Unavailable + [phone] Toro Vizcarra MD Unavailable Unavailable Alfred Lowery MD Unavailable [phone] Moises Munroe APRN Unavailable [phone] Cosmo Castillo MD Unavailable [phone] Encounter Details Date Type Department Care Team (Late st Contact Info) Description 01/30/2017 Abstract [facility] [address] [place] [id number] Toro Vizcarra MD Social History Tobacco Use Types Packs/Day Years Used Date Smoking Tobacco: Every Day Cigarettes 1 40 Smokeless Tobacco: Never Alcohol Use Standard Drinks/Week Comments Yes 0 (1 standard drink = 0.6 oz pur e alcohol) socially Sex and Gender Information Value Date Recorded Sex Assigned at Male 11/12/2024 9:53 AM [employer] Legal Sex Male 9:48 PM CDT Gender Identity Not on file Sexual Orientation Not on file 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 Not on file Not on file Not o n file documented as of this encounter Plan of Treatment Not on file documented as of this encounter Visit Diagnoses Not on filedocumented in this encounter Additional Health Concerns Infection Onset Date Last Indicated Resolved Time COVID-19 Rule Out 06/10/2020 06/10/2020 06/12/2020 12:37 PM CDT documented as of this encounter Care Teams Transformer Maker Relationship Specialty Start Date End Date Anuradha Ramos MD [address] [place] [address] PCP - General FAMILY PRACTICE 11/19/16 12/10/21 Anuradha Ramos MD [address] [place] [id number] PCP - General FAMILY PRACTICE 12/11/21 Anuradha Ramos MD [address] [place] [id number] FAMILY PRACTICE 12/11/21 Toro Vizcarra MD [address] [place] [id number] CARDIOVASCULAR DISEASE 11/19/16 05/23/21 Alfred Lowery MD [address] [place] [address] CARDIOVASCULAR DISEASE 02/26/17 Moises Munroe APRN [address] [place] [address] Nurse Practitioner NURSE PRACTITIONER 05/02/20 Cosmo Castillo MD [address] [facility] [address] [place] [address] [employer] INTERVENTIONAL CARDIOLOGY 05/24/21 documented as of this encounter
[2025-01-26 09:11] LABS: Mean Platelet Volume 9.7 fl (7.4-10.4); Platelet Count Result 281 k/mm3 (150-375)
[2025-01-26 10:18] LABS: INR 0.9; Prothrombin Time 12.3 Seconds (11.1-14.7)
[2025-01-26 11:55] LABS: Glucose Point of Care 101 mg/dl (65-105)
== END 2025-01-26 13:40 | disposition home or self-care (01) ==
PROVIDERS: PCP Family Medicine; Referring Provider Neurological Surgery; Visit Provider Radiology Diagnostic Radiology
DX: G95.89 Other specified diseases of spinal cord (principal); M47.22 Other spondylosis with radiculopathy, cervical region
CPT/HCPCS: 36415; 62305; 72126; 72129; 72132; 82948; 85049; 85610; Q9967